=== PATIENT | male | born 1970 | race Caucasian/White ===

== ENCOUNTER 2018-09-22 20:02 | Emergency (ER) | payer MEDICARE, MEDICAID, SELFPAY ==
[2018-09-22 20:04] VITALS: BP 152/70; PULSE 100; RESP 20; TEMP 37.6; O2SAT 90
--- NOTE | 2018-09-22 20:18 | W.ED.GENAD ---
Discharge Plan Disposition Patient Disposition: HOME Condition: Stable Discharge Details Chief Complaint: RespSymp Clinical Impression: Upper respiratory infection Primary Care Provider: Jose Alfredo Galindo ED Provider: Severiano Martel [place] Meds and New Rx's Prescriptions: New levofloxacin 750 mg tablet 750 mg PO DAILY Qty: 6 RF: 0 prednisone 20 mg tablet 60 mg PO DAILY 4 Days Qty: 12 RF: 0 Continued Fiasp U-100 Insulin 100 unit/mL solution 40 unit SC DAILY RF: 0 promethazine-codeine 6.25-10 mg/5 mL syrup 5 ml PO Q6H PRN (Reason: cough) Qty: 118 RF: 0 carvedilol 25 MG tablet 25 mg PO TID Qty: 180 RF: 4 aspirin [Ecotrin Low Strength] 81 MG tablet,delayed release (DR/EC) 81 mg PO DAILY RF: 0 Insulin Pump [id number] 1 EACH misc 1 ea Miscellaneous DIRECTED RF: 0 minoxidil 10 MG tablet 10 mg PO BID RF: 0 ondansetron HCl [Zofran] 4 MG tablet 4 mg PO Q12H PRN Qty: 8 RF: 1 latanoprost [Xalatan] 2.5 ML drops 1 drp OU HS RF: 0 Glucagon Emergency Kit (human) 1 MG kit 1 mg IM/SC HYPOGLYCEMIA PRN Qty: 2 RF: 3 pantoprazole 40 MG tablet,delayed release (DR/EC) 40 mg PO QAM Qty: 90 RF: 4 Blood Glucose Test 1 EACH strip 1 ea Miscellaneous QID Qty: 360 RF: 4 Lantus U-100 Insulin 100 UNIT/1 ML solution 20 u Sub-Q DAILY Qty: 5 RF: 5 alcohol swabs [Alcohol Pads] 1 EACH pads, medicated 1 ea Topical 6 x/day Qty: 250 RF: 5 pen needle, diabetic 1 EACH needle 1 ea Miscellaneous 6 x /day Qty: 180 RF: 11 Novolog Flexpen U-100 Insulin 100 UNIT/1 ML insulin pen 3 - 12 u SQ 5x/day Qty: 5 RF: 5 PROVENTIL HFA 18 GM HFA.AER.AD 1 - 2 puff Inhalation Q4H PRN Qty: 1 RF: 5 cinacalcet [Sensipar] 30 MG tablet 30 mg PO QPM RF: 0 metoclopramide HCl [Reglan] 10 MG tablet 10 mg PO Q8H PRN (Reason: Nausea / Vomiting) Qty: 10 RF: 0 albuterol sulfate 2.5 MG/3 ML solution for nebulization 2.5 mg Inhalation Q4H PRN (Reason: Shortness Of Breath) Qty: 10 RF: 0 Aeroneb Go Nebulizer 1 EACH misc 1 ea Miscellaneous DIRECTED Qty: 1 RF: 0 amlodipine 5 MG tablet 5 mg PO DAILY RF: 0 Discontinued cefuroxime axetil 250 mg tablet 250 mg PO Q12H Qty: 14 RF: 0 Discharge Instructions Additional Instructions: Use the inhaler every 2 hours as needed take the prednisone and levofloxacin once daily starting tomorrow. if you feel you are becoming significantly more ill or having worsening trouble breathing return to the emergency department Medical Decision Making 48 yo male with hx of esrd on dialysis MWF and received his session earlier today, T1DM, who comes in with cough for 3 days and today had fevers at home. He saw his pcp earlier today who put him on cefuroxime, and he has had one dose but despite this he has felt more and more dyspneic and had fevers at home tonight so came here. Denies recent travel, rashes, vomit. He has wheezing bilaterally at the apices and diminished breath sounds at the bases bilaterally on exam and intermittent dry cough. I suspect pna, will obtain labs, cultures and xray and also obtain influenza swab. Given the wheezing will tx with steroids and neb and monitor labs reassuring, he feels much better after neb, awaiting imaging imaging shows no acute findings, his cough is significantly improved after duoneb and no longer has wheezing. Given reassuring labs I feel he can be managed as an outpatient and he is comfortable with this and returning if he worsens. I am going to switch him to levofloxacin to cover more broadly. Full return precautions given Differential Diagnosis pna, influenza, rad Imaging Data Radiologic Study: Attestation: I personally reviewed and interpreted this imaging study as follows: Imaging: X-Ray Radiologist's impression: no acute findings Lab Data Lab results reviewed: Yes I reviewed the patient's lab results. HPI General Mode of arrival: ambulatory. Date/Time Provider Initiated Documentation: 09/22/18 20:09. Limitations to Documentation: no limitations. Information obtained by: patient. History of Present Illness 48 year old M presents to the emergency department with the chief complaint of fever, described as moderate, Quality is described as burning, Patient reports no radiation. Patient started experiencing this day(s) (1) and it has been constant. No relieving factors improve symptom(s), No exacerbating factors reported . Patient notes cough. Patient did receive the following treatments prior to arrival, none Related Data Home Medications Medication Instructions Recorded Confirmed aspirin [Ecotrin Low Strength] 81 mg PO DAILY tab-cap 10/12/12 09/22/18 carvedilol 25 mg PO TID #180 tab-cap 10/12/12 09/22/18 Insulin Pump [id number] ea 02/15/13 09/22/18 cinacalcet [Sensipar] 30 mg PO QPM 04/01/14 09/22/18 minoxidil 10 mg PO BID tab-cap 06/27/14 09/22/18 ondansetron HCl [Zofran] 4 mg PO Q12H PRN #8 tab-cap 08/22/14 09/22/18 Glucagon Emergency Kit (human) 1 mg IM/SC HYPOGLYCEMIA PRN #2 kit 09/11/15 09/22/18 latanoprost [Xalatan] 1 drp OU HS drp 09/11/15 09/22/18 pantoprazole 40 mg PO QAM #90 tab-cap 09/11/15 09/22/18 amlodipine 5 mg PO DAILY 06/16/16 09/22/18 Blood Glucose Test #360 strip 03/10/17 09/22/18 Lantus U-100 Insulin 20 u SUB-Q DAILY #5 pen 06/09/17 09/22/18 alcohol swabs [Alcohol Pads] 1 ea TOPICAL 6 x/day #250 pad 06/09/17 09/22/18 pen needle, diabetic #180 ndl 06/09/17 09/22/18 Novolog Flexpen U-100 Insulin 3 - 12 u SQ 5x/day #5 pen 06/12/17 09/22/18 Aeroneb Go Nebulizer #1 ea 11/14/17 09/22/18 albuterol sulfate 2.5 mg INHALATION Q4H PRN #10 vial 11/14/17 09/22/18 metoclopramide HCl [Reglan] 10 mg PO Q8H PRN #10 tab 11/14/17 09/22/18 insulin aspart (niacinamide) (U- 40 unit SC DAILY ml 08/03/18 09/22/18 100) 100 unit/mL subcutaneous solution levofloxacin 750 mg PO DAILY #6 tab 09/22/18 prednisone 60 mg PO DAILY 4 Days #12 tab 09/22/18 promethazine 6.25 mg-codeine 10 5 ml PO Q6H PRN #118 ml 09/22/18 09/22/18 mg/5 mL syrup Previous Rx's Medication Instructions Recorded Blood Glucose Test #360 strip 03/10/17 Lantus U-100 Insulin 20 u SUB-Q DAILY #5 pen 06/09/17 alcohol swabs [Alcohol Pads] 1 ea TOPICAL 6 x/day #250 pad 06/09/17 pen needle, diabetic #180 ndl 06/09/17 Novolog Flexpen U-100 Insulin 3 - 12 u SQ 5x/day #5 pen 06/12/17 Aeroneb Go Nebulizer #1 ea 11/14/17 albuterol sulfate 2.5 mg INHALATION Q4H PRN #10 vial 11/14/17 metoclopramide HCl [Reglan] 10 mg PO Q8H PRN #10 tab 11/14/17 levofloxacin 750 mg PO DAILY #6 tab 09/22/18 prednisone 60 mg PO DAILY 4 Days #12 tab 09/22/18 promethazine 6.25 mg-codeine 10 5 ml PO Q6H PRN #118 ml 09/22/18 mg/5 mL syrup Allergies Allergy/AdvReac Type Severity Reaction Status Date / Time Penicillins Allergy Severe HIVES Unverified 09/22/18 20:09 vancomycin Allergy Unknown sweats, Unverified 09/22/18 20:09 chills rash simvastatin AdvReac Intermediate MYOPATHY Unverified 09/22/18 20:09 morphine AdvReac Nausea Unverified 09/22/18 20:09 MOLD AND SMUT Allergy Severe ANAPHALAXSI Uncoded 09/22/18 20:09 S General Stated Complaint: RespSymp ARPITA: 3 Review of Systems Review of Systems All systems reviewed & are unremarkable except as noted in HPI and below ENT Denies change in voice Gastrointestinal Denies abdominal pain, Denies nausea and Denies vomiting Integumentary/Breasts Denies rash [facility] Medical History Chronic renal failure syndrome Diabetes mellitus type 1 Essential hypertension Gastroparesis Hyperlipidemia Surgical History Cholecystectomy (~2000) Fracture, Open Treatment Family History Mother No problems noted. Father No problems noted. Sister No problems noted. Grandfather No problems noted. Grandfather No problems noted. Grandmother No problems noted. Grandmother No problems noted. Social History Smoking/Tobacco Use Status: Never Alcohol Intake: never Drug use: Never Do you feel safe in your relationship?: Yes Exam Const General: no acute distress Orientation: alert HENMT Head: normal to inspection Ears: external ears normal General nose exam: external nose normal Mouth: moist mucous membranes Eyes General: appearance normal, both eyes and all related structures Neck Neck: normal visual inspection Resp Auscultation: wheezes Cardio Rate: regular rate Skin General skin exam: no rashes or lesions noted Neuro General: alert and oriented x3 Extrem General: normal to inspection Psych Mental Status: mental status grossly normal Course Vital Signs Temperature 37.6 C H 09/22/18 20:04 Pulse 100 H 09/22/18 20:04 Respiratory Rate 20 09/22/18 20:04 Blood Pressure 152/70 H 09/22/18 20:04 Pulse Oximetry 90 L 09/22/18 20:04 Temperature 37.6 C H 09/22/18 20:04 Temperature Source Skin 09/22/18 20:04 Pulse 100 H 09/22/18 20:04 Respiratory Rate 20 09/22/18 20:04 Blood Pressure 152/70 H 09/22/18 20:04 Blood Pressure Position Sitting 09/22/18 20:04 Pulse Oximetry 90 L 09/22/18 20:04 Oxygen Delivery Method Room Air 09/22/18 20:04 Oxygen Flow Rate 0 09/22/18 20:04 Lab/Test Results Lab/Test Results: 09/22/18 20:12 Blood Blood Culture - Pending 09/22/18 20:12 Blood Blood Culture - Pending
--- NOTE | 2018-09-22 20:21 | ED.GENADUL_ITS ---
Discharge Plan Disposition Patient Disposition: HOME Condition: Stable Discharge Details Chief Complaint: RespSymp Clinical Impression: Upper respiratory infection Primary Care Provider: Jose Alfredo Galindo ED Provider: Severiano Martel [place] Meds and New Rx's Prescriptions: New levofloxacin 750 mg tablet 750 mg PO DAILY Qty: 6 RF: 0 prednisone 20 mg tablet 60 mg PO DAILY 4 Days Qty: 12 RF: 0 Continued Fiasp U-100 Insulin 100 unit/mL solution 40 unit SC DAILY RF: 0 promethazine-codeine 6.25-10 mg/5 mL syrup 5 ml PO Q6H PRN (Reason: cough) Qty: 118 RF: 0 carvedilol 25 MG tablet 25 mg PO TID Qty: 180 RF: 4 aspirin [Ecotrin Low Strength] 81 MG tablet,delayed release (DR/EC) 81 mg PO DAILY RF: 0 Insulin Pump [id number] 1 EACH misc 1 ea Miscellaneous DIRECTED RF: 0 minoxidil 10 MG tablet 10 mg PO BID RF: 0 ondansetron HCl [Zofran] 4 MG tablet 4 mg PO Q12H PRN Qty: 8 RF: 1 latanoprost [Xalatan] 2.5 ML drops 1 drp OU HS RF: 0 Glucagon Emergency Kit (human) 1 MG kit 1 mg IM/SC HYPOGLYCEMIA PRN Qty: 2 RF: 3 pantoprazole 40 MG tablet,delayed release (DR/EC) 40 mg PO QAM Qty: 90 RF: 4 Blood Glucose Test 1 EACH strip 1 ea Miscellaneous QID Qty: 360 RF: 4 Lantus U-100 Insulin 100 UNIT/1 ML solution 20 u Sub-Q DAILY Qty: 5 RF: 5 alcohol swabs [Alcohol Pads] 1 EACH pads, medicated 1 ea Topical 6 x/day Qty: 250 RF: 5 pen needle, diabetic 1 EACH needle 1 ea Miscellaneous 6 x /day Qty: 180 RF: 11 Novolog Flexpen U-100 Insulin 100 UNIT/1 ML insulin pen 3 - 12 u SQ 5x/day Qty: 5 RF: 5 PROVENTIL HFA 18 GM HFA.AER.AD 1 - 2 puff Inhalation Q4H PRN Qty: 1 RF: 5 cinacalcet [Sensipar] 30 MG tablet 30 mg PO QPM RF: 0 metoclopramide HCl [Reglan] 10 MG tablet 10 mg PO Q8H PRN (Reason: Nausea / Vomiting) Qty: 10 RF: 0 albuterol sulfate 2.5 MG/3 ML solution for nebulization 2.5 mg Inhalation Q4H PRN (Reason: Shortness Of Breath) Qty: 10 RF: 0 Aeroneb Go Nebulizer 1 EACH misc 1 ea Miscellaneous DIRECTED Qty: 1 RF: 0 amlodipine 5 MG tablet 5 mg PO DAILY RF: 0 Discontinued cefuroxime axetil 250 mg tablet 250 mg PO Q12H Qty: 14 RF: 0 Discharge Instructions Additional Instructions: Use the inhaler every 2 hours as needed take the prednisone and levofloxacin once daily starting tomorrow. if you feel you are becoming significantly more ill or having worsening trouble breathing return to the emergency department Medical Decision Making 48 yo male with hx of esrd on dialysis MWF and received his session earlier today, T1DM, who comes in with cough for 3 days and today had fevers at home. He saw his pcp earlier today who put him on cefuroxime, and he has had one dose but despite this he has felt more and more dyspneic and had fevers at home tonight so came here. Denies recent travel, rashes, vomit. He has wheezing bilaterally at the apices and diminished breath sounds at the bases bilaterally on exam and intermittent dry cough. I suspect pna, will obtain labs, cultures and xray and also obtain influenza swab. Given the wheezing will tx with steroids and neb and monitor labs reassuring, he feels much better after neb, awaiting imaging imaging shows no acute findings, his cough is significantly improved after duoneb and no longer has wheezing. Given reassuring labs I feel he can be managed as an outpatient and he is comfortable with this and returning if he worsens. I am going to switch him to levofloxacin to cover more broadly. Full return precautions given Differential Diagnosis pna, influenza, rad Imaging Data Radiologic Study: Attestation: I personally reviewed and interpreted this imaging study as follows: Imaging: X-Ray Radiologist's impression: no acute findings Lab Data Lab results reviewed: Yes I reviewed the patient's lab results. HPI General Mode of arrival: ambulatory . Date/Time Provider Initiated Documentation: 09/22/18 20:09 . Limitations to Documentation: no limitations . Information obtained by: patient . History of Present Illness 48 year old M presents to the emergency department with the chief complaint of fever, described as moderate, Quality is described as burning, Patient reports no radiation. Patient started experiencing this day(s) (1) and it has been constant. No relieving factors improve symptom(s), No exacerbating factors reported . Patient notes cough. Patient did receive the following treatments prior to arrival, none Related Data Home Medications Medication Instructions Recorded Confirmed aspirin [Ecotrin Low Strength] 81 mg PO DAILY tab-cap 10/12/12 09/22/18 carvedilol 25 mg PO TID #180 tab-cap 10/12/12 09/22/18 Insulin Pump [id number] ea 02/15/13 09/22/18 cinacalcet [Sensipar] 30 mg PO QPM 04/01/14 09/22/18 minoxidil 10 mg PO BID tab-cap 06/27/14 09/22/18 ondansetron HCl [Zofran] 4 mg PO Q12H PRN #8 tab-cap 08/22/14 09/22/18 Glucagon Emergency Kit (human) 1 mg IM/SC HYPOGLYCEMIA PRN #2 kit 09/11/15 09/22/18 latanoprost [Xalatan] 1 drp OU HS drp 09/11/15 09/22/18 pantoprazole 40 mg PO QAM #90 tab-cap 09/11/15 09/22/18 amlodipine 5 mg PO DAILY 06/16/16 09/22/18 Blood Glucose Test #360 strip 03/10/17 09/22/18 Lantus U-100 Insulin 20 u SUB-Q DAILY #5 pen 06/09/17 09/22/18 alcohol swabs [Alcohol Pads] 1 ea TOPICAL 6 x/day #250 pad 06/09/17 09/22/18 pen needle, diabetic #180 ndl 06/09/17 09/22/18 Novolog Flexpen U-100 Insulin 3 - 12 u SQ 5x/day #5 pen 06/12/17 09/22/18 Aeroneb Go Nebulizer #1 ea 11/14/17 09/22/18 albuterol sulfate 2.5 mg INHALATION Q4H PRN #10 vial 11/14/17 09/22/18 metoclopramide HCl [Reglan] 10 mg PO Q8H PRN #10 tab 11/14/17 09/22/18 insulin aspart (niacinamide) (U- 40 unit SC DAILY ml 08/03/18 09/22/18 100) 100 unit/mL subcutaneous solution levofloxacin 750 mg PO DAILY #6 tab 09/22/18 prednisone 60 mg PO DAILY 4 Days #12 tab 09/22/18 promethazine 6.25 mg-codeine 10 5 ml PO Q6H PRN #118 ml 09/22/18 09/22/18 mg/5 mL syrup Previous Rx's Medication Instructions Recorded Blood Glucose Test #360 strip 03/10/17 Lantus U-100 Insulin 20 u SUB-Q DAILY #5 pen 06/09/17 alcohol swabs [Alcohol Pads] 1 ea TOPICAL 6 x/day #250 pad 06/09/17 pen needle, diabetic #180 ndl 06/09/17 Novolog Flexpen U-100 Insulin 3 - 12 u SQ 5x/day #5 pen 06/12/17 Aeroneb Go Nebulizer #1 ea 11/14/17 albuterol sulfate 2.5 mg INHALATION Q4H PRN #10 vial 11/14/17 metoclopramide HCl [Reglan] 10 mg PO Q8H PRN #10 tab 11/14/17 levofloxacin 750 mg PO DAILY #6 tab 09/22/18 prednisone 60 mg PO DAILY 4 Days #12 tab 09/22/18 promethazine 6.25 mg-codeine 10 5 ml PO Q6H PRN #118 ml 09/22/18 mg/5 mL syrup Allergies Allergy/AdvReac Type Severity Reaction Status Date / Time Penicillins Allergy Severe HIVES Unverified 09/22/18 20:09 vancomycin Allergy Unknown sweats, Unverified 09/22/18 20:09 chills rash simvastatin AdvReac Intermediate MYOPATHY Unverified 09/22/18 20:09 morphine AdvReac Nausea Unverified 09/22/18 20:09 MOLD AND SMUT Allergy Severe ANAPHALAXSI Uncoded 09/22/18 20:09 S General Stated Complaint: RespSymp ARPTIA: 3 Review of Systems Review of Systems All systems reviewed & are unremarkable except as noted in HPI and below ENT Denies change in voice Gastrointestinal Denies abdominal pain, Denies nausea and Denies vomiting Integumentary/Breasts Denies rash [facility] Medical History Chronic renal failure syndrome Diabetes mellitus type 1 Essential hypertension Gastroparesis Hyperlipidemia Surgical History Cholecystectomy (~2000) Fracture, Open Treatment Family History Mother No problems noted. Father No problems noted. Sister No problems noted. Grandfather No problems noted. Grandfather No problems noted. Grandmother No problems noted. Grandmother No problems noted. Social History Smoking/Tobacco Use Status: Never Alcohol Intake: never Drug use: Never Do you feel safe in your relationship?: Yes Exam Const General: no acute distress Orientation: alert HENMT Head: normal to inspection Ears: external ears normal General nose exam: external nose normal Mouth: moist mucous membranes Eyes General: appearance normal, both eyes and all related structures Neck Neck: normal visual inspection Resp Auscultation: wheezes Cardio Rate: regular rate Skin General skin exam: no rashes or lesions noted Neuro General: alert and oriented x3 Extrem General: normal to inspection Psych Mental Status: mental status grossly normal Course Vital Signs Temperature 37.6 C H 09/22/18 20:04 Pulse 100 H 09/22/18 20:04 Respiratory Rate 20 09/22/18 20:04 Blood Pressure 152/70 H 09/22/18 20:04 Pulse Oximetry 90 L 09/22/18 20:04 Temperature 37.6 C H 09/22/18 20:04 Temperature Source Skin 09/22/18 20:04 Pulse 100 H 09/22/18 20:04 Respiratory Rate 20 09/22/18 20:04 Blood Pressure 152/70 H 09/22/18 20:04 Blood Pressure Position Sitting 09/22/18 20:04 Pulse Oximetry 90 L 09/22/18 20:04 Oxygen Delivery Method Room Air 09/22/18 20:04 Oxygen Flow Rate 0 09/22/18 20:04 Lab/Test Results Lab/Test Results: 09/22/18 20:12 Blood Blood Culture - Pending 09/22/18 20:12 Blood Blood Culture - Pending
[2018-09-22] MEDS: methylPREDNISolone SUCC 125 MG VIAL IVP (20:35)
[2018-09-22] MEDS: Normal Saline Flush 10 ML SYR IVP (20:36)
[2018-09-22] MEDS: Albuterol/Ipratropium 3 ML UPD VIAL UPD (20:36)
[2018-09-22 20:38] LABS: Abs Immature Grans 0.02 k/cumm (0.0-0.09); Absolute Basophil Count 0.04 k/cumm (0.0-0.2); Absolute Eosinophil Count 0.46 k/cumm (0.0-0.7); Absolute Lymphocyte Count 0.78 k/cumm (1.2-3.4); Absolute Monocyte Count 0.59 k/cumm (0.11-0.7); Absolute Neutrophil Count 5.16 k/cumm (1.2-6.7); Basophils % 0.6; Eosinophils % 6.5; HGB 10.7 g/dL (13.5-17.5); Immature Grans % 0.3; Lactate-non-spesis 0.4 mmol/l (0.6-1.4); Lymphocytes % 11.1; Mean Corp. HGB Concentration 32.4 g/dL (32.0-36.0); Mean Corpuscular Hemoglobin 31.4 pg (27.0-33.0); Mean Corpuscular Volume 96.8 fL (80-95); Mean Platelet Volume 9.2 fL (8.0-11.0); Monocytes % 8.4; Neutrophils % 73.1; Platelet Count 146 x1000/uL (130-400); RBC 3.41 m/cumm (4.50-6.00); RBC Distribution Width 13.4 % (11.8-14.1); White Blood Cell Count 7.05 k/cumm (4.4-10.8)
[2018-09-22 20:55] LABS: PTT Activated 26.5 sec (21.0-31.4); Prothrombin Time 10.1 sec (9.3-11.0)
[2018-09-22 20:56] LABS: ALT 34 U/L (12-78); AST 50 U/L (15-37); Albumin 3.8 g/dL (3.4-5.0); Alkaline Phosphatase 105 U/L (46-116); Anion Gap 10.3 mmol/L (3-11); BUN 14 mg/dL (7-18); Bilirubin, Total 0.6 mg/dL (0.2-1.0); CO2 30.7 mmol/L (21.0-32.0); Calcium 8.7 mg/dL (8.5-10.1); Chloride 98 mmol/L (98-107); Estimated GFR 17.17 (mL/min/1.73m2); Glucose 86 mg/dL (70-100); Magnesium 1.9 mg/dL (1.8-2.4); Potassium 3.1 mmol/L (3.5-5.1); Sodium 139 mmol/L (136-145); Total Protein 7.4 g/dL (6.4-8.2)
--- NOTE | 2018-09-22 20:56 | DI.RAD_ITS ---
SYMPTOM/DIAGNOSIS: COUGH PA AND LATERAL CHEST: The lungs are free of infiltrate. There is no pleural effusion. The cardiovascular structures are intact. A right central venous catheter is unchanged when compared with the previous examination. SUMMARY: No evidence of acute cardiopulmonary disease.
[2018-09-22 21:05] VITALS: BP 148/54; PULSE 95; RESP 20; TEMP 37.6; O2SAT 97
[2018-09-22 21:18] LABS: CREATININE 3.77 mg/dL (0.70-1.30)
--- NOTE | 2018-09-22 21:24 | DI.VRAD_ITS ---
EXAM: XR Chest, 2 Views EXAM DATE/TIME: 09/22/2018 8:18 PM CLINICAL HISTORY: 48 years old, male; Signs and symptoms; Cough TECHNIQUE: Imaging protocol: XR of the chest, 2 views. COMPARISON: CR CHEST 2 VIEWS PA,LAT 11/14/2017 5:06 AM FINDINGS: Tubes, catheters and devices: Right central venous catheter unchanged. Lungs: Unremarkable. No consolidation. Pleural space: Unremarkable. No pleural effusion. No pneumothorax. Heart/Mediastinum: Unremarkable. No cardiomegaly. Bones/joints: Unremarkable. IMPRESSION: No acute finding. Dictated and Authenticated by: Severiano Evans MD. Ordering:WILL العلي MD
[2018-09-22] MEDS: levoFLOXacin 500 MG, levoFLOXacin 250 MG 750 MG PO (21:34)
[2018-09-22] MEDS: Albuterol HFA 8 GM 60 PUFF INH IH (21:35)
[2018-09-22 21:39] VITALS: BP 151/66; PULSE 99; RESP 22; TEMP 38; O2SAT 91
== END 2018-09-22 21:58 | disposition home or self-care (01) ==
PROVIDERS: Emergency Provider Emergency Medicine; PCP Family Medicine
DX: J06.9 Acute upper respiratory infection, unspecified (principal); I12.0 Hypertensive chronic kidney disease with stage 5 chronic kidney disease or end stage renal disease; E10.22 Type 1 diabetes mellitus with diabetic chronic kidney disease; N18.6 End stage renal disease; Z99.2 Dependence on renal dialysis
CPT/HCPCS: 36415; 80053; 87040; 87449; 94640; 99284; 71046; 83605; 83735; 85025; 85610; 85730; J2930; J7620

== ENCOUNTER 2018-11-04 14:27 | Outpatient (CLI) | payer MEDICARE, MEDICAID, SELFPAY ==
[2018-11-08 12:10] LABS: Lyme Ab w Rflx to Lyme Confirm Negative
== END 2018-11-04 14:47 ==
PROVIDERS: PCP Family Medicine; Visit Provider Family Medicine
DX: M25.50 Pain in unspecified joint (principal)
CPT/HCPCS: 36415; 86618

== ENCOUNTER 2018-12-14 12:35 | Outpatient (CLI) | payer MEDICARE, MEDICAID, SELFPAY ==
[2018-12-14 14:35] LABS: C-Reactive Protein < 0.05 mg/dL (0.0-0.3)
[2018-12-14 14:55] LABS: ESR 14 MM/HR (0-15)
== END 2018-12-14 12:55 ==
PROVIDERS: PCP Family Medicine; Visit Provider Family Medicine
DX: M25.50 Pain in unspecified joint (principal)
CPT/HCPCS: 36415; 85652; 86140

== ENCOUNTER 2019-06-22 16:01 | Emergency (ER) | payer MEDICARE, MEDICAID, SELFPAY ==
[2019-06-22 16:04] VITALS: BP 120/59; PULSE 80; RESP 20; TEMP 36.7; O2SAT 94
--- NOTE | 2019-06-22 16:28 | ED.GENADUL_ITS ---
Discharge Plan Disposition Patient Disposition: HOME Condition: Improving Discharge Details Chief Complaint: RespSymp Clinical Impression: Acute bronchitis Primary Care Provider: Jose Alfredo Galindo. ED Provider: Mavis Otero Home Meds and New Rx's Prescriptions: New prednisone 20 mg tablet See Rx Instructions .ROUTE .COMPLEX Qty: 12 RF: 0 benzonatate [Tessalon Perles] 100 mg capsule 100 mg PO TID PRN (Reason: cough) Qty: 10 RF: 0 Continued Fiasp U-100 Insulin 100 unit/mL solution 40 unit SC DAILY RF: 0 carvedilol 25 MG tablet 25 mg PO TID Qty: 180 RF: 4 aspirin [Ecotrin Low Strength] 81 MG tablet,delayed release (DR/EC) 81 mg PO DAILY RF: 0 (DME) Insulin Pump [id number] 1 EACH misc 1 ea Miscellaneous DIRECTED RF: 0 minoxidil 10 MG tablet 10 mg PO BID RF: 0 ondansetron HCl [Zofran] 4 MG tablet 4 mg PO Q12H PRN Qty: 8 RF: 1 latanoprost [Xalatan] 2.5 ML drops 1 drp OU HS RF: 0 Glucagon Emergency Kit (human) 1 MG kit 1 mg IM/SC HYPOGLYCEMIA PRN Qty: 2 RF: 3 pantoprazole 40 MG tablet,delayed release (DR/EC) 40 mg PO QAM PRNQty: 90 RF: 4 (DME) Blood Glucose Test 1 EACH strip 1 ea Miscellaneous QID Qty: 360 RF: 4 alcohol swabs [Alcohol Pads] 1 EACH pads, medicated 1 ea Topical 6 x/day Qty: 250 RF: 5 (DME) pen needle, diabetic 1 EACH needle 1 ea Miscellaneous 6 x /day Qty: 180 RF: 11 Novolog Flexpen U-100 Insulin 100 UNIT/1 ML insulin pen 3 - 12 u SQ 5x/day Qty: 5 RF: 5 PROVENTIL HFA 18 GM HFA.AER.AD 1 - 2 puff Inhalation Q4H PRN Qty: 1 RF: 5 Lantus U-100 Insulin 100 unit/mL solution 20 unit Sub-Q DAILY Qty: 5 RF: 11 cinacalcet [Sensipar] 30 MG tablet 30 mg PO QPM RF: 0 metoclopramide HCl [Reglan] 10 MG tablet 10 mg PO Q8H PRN (Reason: Nausea / Vomiting) Qty: 10 RF: 0 albuterol sulfate 2.5 MG/3 ML solution for nebulization 2.5 mg Inhalation Q4H PRN (Reason: Shortness Of Breath) Qty: 10 RF: 0 (DME) Aeroneb Go Nebulizer 1 EACH misc 1 ea Miscellaneous DIRECTED Qty: 1 RF: 0 amlodipine 5 MG tablet 5 mg PO DAILY RF: 0 Discharge Instructions Instructions: Acute Bronchitis (ED) Additional Instructions: Use the albuterol inhaler as needed and directed for shortness of breath or wheezing. Use the Tessalon Perles as needed and directed for coughing. Take the steroids until finished. Follow-up with your scheduled appointment with your primary care doctor tomorrow. Return to the emergency department if you develop any worsening or new concerning symptoms. Discharge Data Discharge Date/Time-TO BE ENTERED AT DEPARTURE: 06/22/19 18:15 Discharge Physician: Mavis Otero Medical Decision Making 1615 -- 49-year-old male with a history of diabetes, end-stage renal disease on dialysis, GERD, hypertension, hyperlipidemia presents with cough mainly dry occasionally productive of white sputum and occasional shortness of breath for the past few days. He has been taking xope-hof-hknztsa cough and cold medication without relief. Denies fever or chest pain. O2 sat 94% on room air. Afebrile. Patient appears nontoxic. He is speaking in full sentences. Scattered rhonchi and wheezing throughout. Suspect most likely bronchitis. Chest x-ray obtained which notes prominent indistinct pulmonary vascular most likely consistent with edema versus atypical infection but without focal consolidation. [id number] --patient reassessed -patient feels better. He feels the neb treatment help with his cough. He is requesting another treatment to help her for home. Breath sounds significantly improved. Will give another neb treatment. We will send with an albuterol inhaler, prednisone and Tessalon Perles. Do not see indication for antibiotics at this time. Patient has a follow-up appointment with his primary care doctor tomorrow. He is advised to return here with any worsening symptoms. Medical Records Medical records reviewed: Yes I reviewed the patient's medical records. Imaging Data Radiologic Study: Radiologist's impression: XR Chest, 2 Views Exam date and time: 06/22/2019 5:21 PM Age: 49 years old Clinical indication: Other: Cough, SOB, R/O acute disease TECHNIQUE: Imaging protocol: XR of the chest Views: 2 views. COMPARISON: CR XR CHEST 2V PA LATERAL 09/22/2018 8:55 PM FINDINGS: Tubes, catheters and devices: Right tunnel catheter terminates in the right atrium. Lungs: Prominent indistinct pulmonary vasculature. No focal consolidation. Pleural space: Unremarkable. No pleural effusion. No pneumothorax. Heart/Mediastinum: Stable enlarged cardiomediastinal silhouette. Bones/joints: Unremarkable. IMPRESSION: Prominent indistinct pulmonary vasculature consistent with edema or atypical infection. No focal consolidation. HPI General Mode of arrival: ambulatory . Date/Time Provider Initiated Documentation: 06/22/19 16:11 . Limitations to Documentation: no limitations . Information obtained by: patient . History of Present Illness 49 year old M pr esents to the emergency department with the chief complaint of cough, occasional shortness of breath , described as mild and moderate, Patient started experiencing this day(s) (3) and it has been constant. No relieving factors improve symptom(s), No exacerbating factors reported . Patient notes cough (dry, occasional white), loss of appetite (slight) and shortness of breath (occasional); denies chest pain, fever/chills, headaches, malaise, nausea/vomiting, rash, seizure, syncope and weakness. Patient did receive the following treatments prior to arrival, none and other Related Data Home Medications Medication Instructions Recorded Confirmed aspirin [Ecotrin Low Strength] 81 mg PO DAILY tab-cap 10/12/12 06/23/19 carvedilol 25 mg PO TID #180 tab-cap 10/12/12 06/23/19 Insulin Pump [id number] ea 02/15/13 06/23/19 cinacalcet [Sensipar] 30 mg PO QPM 04/01/14 06/23/19 minoxidil 10 mg PO BID tab-cap 06/27/14 06/23/19 ondansetron HCl [Zofran] 4 mg PO Q12H PRN #8 tab-cap 08/22/14 06/23/19 Glucagon Emergency Kit (human) 1 mg IM/SC HYPOGLYCEMIA PRN #2 kit 09/11/15 06/23/19 latanoprost [Xalatan] 1 drp OU HS drp 09/11/15 06/23/19 pantoprazole 40 mg PO QAM PRN #90 tab-cap 09/11/15 06/23/19 amlodipine 5 mg PO DAILY 06/16/16 06/23/19 Blood Glucose Test #360 strip 03/10/17 06/23/19 alcohol swabs [Alcohol Pads] 1 ea TOPICAL 6 x/day #250 pad 06/09/17 06/23/19 pen needle, diabetic #180 ndl 06/09/17 06/23/19 Novolog Flexpen U-100 Insulin 3 - 12 u SQ 5x/day #5 pen 06/12/17 06/23/19 Aeroneb Go Nebulizer #1 ea 11/14/17 06/23/19 albuterol sulfate 2.5 mg INHALATION Q4H PRN #10 vial 11/14/17 06/23/19 metoclopramide HCl [Reglan] 10 mg PO Q8H PRN #10 tab 11/14/17 06/23/19 insulin aspart (niacinamide) 100 40 unit SC DAILY ml 08/03/18 06/23/19 unit/mL subcutaneous solution insulin glargine 100 unit/mL 20 unit SUB-Q DAILY #5 ml 03/01/19 06/23/19 subcutaneous solution benzonatate [Tessalon Perles] 100 mg PO TID PRN #10 cap 06/22/19 06/23/19 prednisone See Rx Instructions .ROUTE 06/22/19 06/23/19 .COMPLEX #12 tab Previous Rx's Medication Instructions Recorded Blood Glucose Test #360 strip 03/10/17 alcohol swabs [Alcohol Pads] 1 ea TOPICAL 6 x/day #250 pad 06/09/17 pen needle, diabetic #180 ndl 06/09/17 Novolog Flexpen U-100 Insulin 3 - 12 u SQ 5x/day #5 pen 06/12/17 Aeroneb Go Nebulizer #1 ea 11/14/17 albuterol sulfate 2.5 mg INHALATION Q4H PRN #10 vial 11/14/17 metoclopramide HCl [Reglan] 10 mg PO Q8H PRN #10 tab 11/14/17 insulin glargine 100 unit/mL 20 unit SUB-Q DAILY #5 ml 03/01/19 subcutaneous solution benzonatate [Tessalon Perles] 100 mg PO TID PRN #10 cap 06/22/19 prednisone See Rx Instructions .ROUTE 06/22/19 .COMPLEX #12 tab Allergies Allergy/AdvReac Type Severity Reaction Status Date / Time Penicillins Allergy Severe HIVES Unverified 06/23/19 12:55 vancomycin Allergy Unknown sweats, Unverified 06/23/19 12:55 chills rash cigarette smoke Allergy Unverified 06/23/19 12:55 simvastatin AdvReac Intermediate MYOPATHY Unverified 06/23/19 12:55 morphine AdvReac Nausea Unverified 06/23/19 12:55 MOLD AND SMUT Allergy Severe ANAPHALAXSI Uncoded 06/23/19 12:55 S General Stated Complaint: RespSymp ARPITA: 3 Review of Systems All systems reviewed & are unremarkable except as noted in HPI and below Constitutional Constitutional: Reports as per HPI, Denies chills and Denies fever(s) Eyes Eyes: Denies blurry vision ENT Ears, Nose, Mouth, and Throat: Denies dizziness, Denies sore throat and Denies throat swelling Cardiovascular Cardiovascular: Denies chest pain and Reports dyspnea Respiratory Respiratory: Reports cough and Reports dyspnea Gastrointestinal Gastrointestinal: Denies abdominal pain, Denies diarrhea and Denies vomiting Genitourinary Genitourinary: Denies hematuria and Denies dysuria Musculoskeletal Musculoskeletal: Denies back pain and Denies numbness Integumentary/Breasts Skin/Breast: Denies lesions and Denies rash Neurologic Neurologic: Denies dizziness, Denies focal weakness and Denies numbness Allergic/Immunologic Allergic/Immunologic: Denies throat swelling [facility] Medical History Chronic renal failure syndrome Diabetes mellitus type 1 Essential hypertension Gastroparesis Hyperlipidemia Surgical History Cholecystectomy (~2000) Fracture, Open Treatment RIGHT ANKLE 07/18/14 Family History Mother No problems noted. Father No problems noted. Sister No problems noted. Grandfather No problems noted. Grandfather No problems noted. Grandmother No problems noted. Grandmother No problems noted. Social History Smoking/Tobacco Use Status: Never Alcohol Intake: never Drug use: Never Do you feel safe at home: Yes Do you feel safe in your relationship?: Yes Exam Const General: cooperative, healthy appearing and no acute distress HENMT Head: normal to inspection Face and sinus: normal facial exam Eyes General: appearance normal, both eyes and all related structures EOM: EOM intact bilaterally Neck Neck: normal visual inspection and No submandibular swelling Lymphatic: no lymphadenopathy noted Chest Chest: normal inspection of the chest and no tenderness Resp Effort & Inspection: normal respiratory effort and able to speak in complete sentences Auscultation: rhonchi (bilaterally, worse in R chest) and wheezes scattered wheezes Cardio Rate: regular rate Rhythm: regular rhythm GI Inspection: normal to inspection Palpation: soft, not firm, not rigid and nontender Auscultation: normal bowel sounds Skin General skin exam: no rashes or lesions noted Neuro General: alert, awake and oriented x3 Cognition: normal cognition Speech: speech normal Motor: muscle tone normal throughout Sensory Exam: no sensory deficits noted Extrem General: normal to inspection, full ROM, normal capillary refill, no calf tenderness bilaterally and no edema Psych Appearance: grossly normal Mental Status: mental status grossly normal Speech and Movement: speech and movement normal Affect: normal affect Course Vital Signs Vital signs: Vital Signs Temperature 98.1 F 06/22/19 16:04 Pulse 80 06/22/19 16:04 Respiratory Rate 06/22/19 16:04 Blood Pressure 120/59 L 06/22/19 16:04 Pulse Oximetry 94 L 06/22/19 16:04 Temperature 98.1 F 06/22/19 16:04 Temperature Source Skin 06/22/19 16:04 Pulse 80 06/22/19 16:04 Respiratory Rate 06/22/19 16:04 Respiratory Effort Non-Labored 06/22/19 16:09 Blood Pressure 120/59 L 06/22/19 16:04 Blood Pressure Position Sitting 06/22/19 16:04 Pulse Oximetry 94 L 06/22/19 16:04 Oxygen Delivery Method Room Air 06/22/19 16:04 Oxygen Flow Rate 0 06/22/19 16:04 Pain Level 9 06/22/19 16:04
[2019-06-22] MEDS: predniSONE 20 MG TAB 60 MG PO (16:58)
[2019-06-22 16:59] VITALS: RESP 4
[2019-06-22] MEDS: Albuterol/Ipratropium 3 ML UPD VIAL UPD (16:59)
--- NOTE | 2019-06-22 17:18 | DI.RAD_ITS ---
EXAM: XR CHEST 2V PA LATERAL CLINICAL HISTORY: cough, sob, r/o acute disease TECHNIQUE: COMPARISON: CHEST 2 VIEWS PA,LAT from 11/14/2017 XR CHEST 2V PA LATERAL from 09/22/2018 FINDINGS: The heart is at the upper limits of normal in size. There is double-lumen central venous catheter t he tip of which lies near the junction of right atrium and SVC. There is some mild pulmonary interstitial diffuse prominence unchanged from prior study of September 2018 and October 2017. No acute consolidation. No pleural effusion. IMPRESSION: No evidence of acute process.
--- NOTE | 2019-06-22 17:29 | DI.VRAD_ITS ---
PROCEDURE INFORMATION: Exam: XR Chest, 2 Views Exam date and time: 06/22/2019 5:21 PM Age: 49 years old Clinical indication: Other: Cough, SOB, R/O acute disease TECHNIQUE: Imaging protocol: XR of the chest Views: 2 views. COMPARISON: CR XR CHEST 2V PA LATERAL 09/22/2018 8:55 PM FINDINGS: Tubes, catheters and devices: Right tunnel catheter terminates in the right atrium. Lungs: Prominent indistinct pulmonary vasculature. No focal consolidation. Pleural space: Unremarkable. No pleural effusion. No pneumothorax. Heart/Mediastinum: Stable enlarged cardiomediastinal silhouette. Bones/joints: Unremarkable. IMPRESSION: Prominent indistinct pulmonary vasculature consistent with edema or atypical infection. No focal consolidation. Dictated and Authenticated by: Russell Craig MD. Ordering:SHARATH Gamble MD
[2019-06-22] MEDS: Albuterol 2.5 MG/3 ML INH SOLN VIAL UPD (18:00)
[2019-06-22] MEDS: Albuterol HFA 8 GM 60 PUFF INH IH (18:02)
[2019-06-22] MEDS: Inhaler, Assist Device 1 EACH MC (18:03)
[2019-06-22 18:13] VITALS: BP 129/65; PULSE 75; RESP 16; TEMP 36.9; O2SAT 98
[2019-06-22 18:15] VITALS: BP 129/65; PULSE 75; RESP 16; TEMP 36.9; O2SAT 98
== END 2019-06-22 18:15 | disposition home or self-care (01) ==
PROVIDERS: Emergency Provider Physician Assistant; PCP Family Medicine
DX: J20.9 Acute bronchitis, unspecified (principal); E10.22 Type 1 diabetes mellitus with diabetic chronic kidney disease; I12.0 Hypertensive chronic kidney disease with stage 5 chronic kidney disease or end stage renal disease; N18.6 End stage renal disease; Z99.2 Dependence on renal dialysis
CPT/HCPCS: 94640; 99284; 71046; 99285; J7512; J7613; J7620

== ENCOUNTER 2019-06-28 19:05 | Emergency (ER) | payer MEDICARE, MEDICAID, SELFPAY ==
[2019-06-28 19:08] VITALS: BP 138/67; PULSE 82; RESP 20; TEMP 36.5; O2SAT 96
--- NOTE | 2019-06-28 19:41 | ED.GENADUL_ITS ---
Discharge Plan Disposition Patient Disposition: HOME Condition: Stable Discharge Details Chief Complaint: RespSymp Clinical Impression: Acute dyspnea Primary Care Provider: Jose Alfredo Galindo ED Provider: Bayron Hernandez Home Meds and New Rx's Prescriptions: New prednisone 20 mg tablet 40 mg PO DAILY 4 Days Qty: 8 RF: 0 No Action Fiasp U-100 Insulin 100 unit/mL solution 40 unit SC DAILY RF: 0 carvedilol 25 MG tablet 25 mg PO TID Qty: 180 RF: 4 aspirin [Ecotrin Low Strength] 81 MG tablet,delayed release (DR/EC) 81 mg PO DAILY RF: 0 (DME) Insulin Pump [id number] 1 EACH misc 1 ea Miscellaneous DIRECTED RF: 0 minoxidil 10 MG tablet 10 mg PO BID RF: 0 ondansetron HCl [Zofran] 4 MG tablet 4 mg PO Q12H PRN Qty: 8 RF: 1 latanoprost [Xalatan] 2.5 ML drops 1 drp OU HS RF: 0 Glucagon Emergency Kit (human) 1 MG kit 1 mg IM/SC HYPOGLYCEMIA PRN Qty: 2 RF: 3 pantoprazole 40 MG tablet,delayed release (DR/EC) 40 mg PO QAM PRNQty: 90 RF: 4 (DME) Blood Glucose Test 1 EACH strip 1 ea Miscellaneous QID Qty: 360 RF: 4 alcohol swabs [Alcohol Pads] 1 EACH pads, medicated 1 ea Topical 6 x/day Qty: 250 RF: 5 (DME) pen needle, diabetic 1 EACH needle 1 ea Miscellaneous 6 x /day Qty: 180 RF: 11 Novolog Flexpen U-100 Insulin 100 UNIT/1 ML insulin pen 3 - 12 u SQ 5x/day Qty: 5 RF: 5 PROVENTIL HFA 18 GM HFA.AER.AD 1 - 2 puff Inhalation Q4H PRN Qty: 1 RF: 5 Lantus U-100 Insulin 100 unit/mL solution 20 unit Sub-Q DAILY Qty: 5 RF: 11 cinacalcet [Sensipar] 30 MG tablet 30 mg PO QPM RF: 0 metoclopramide HCl [Reglan] 10 MG tablet 10 mg PO Q8H PRN (Reason: Nausea / Vomiting) Qty: 10 RF: 0 albuterol sulfate 2.5 MG/3 ML solution for nebulization 2.5 mg Inhalation Q4H PRN (Reason: Shortness Of Breath) Qty: 10 RF: 0 (DME) Aeroneb Go Nebulizer 1 EACH misc 1 ea Miscellaneous DIRECTED Qty: 1 RF: 0 amlodipine 5 MG tablet 5 mg PO DAILY RF: 0 prednisone 20 mg tablet See Rx Instructions .ROUTE .COMPLEX Qty: 12 RF: 0 benzonatate [Tessalon Perles] 100 mg capsule 100 mg PO TID PRN (Reason: cough) Qty: 10 RF: 0 Discharge Instructions Instructions: Dyspnea (ED) Additional Instructions: 1. Follow-up for dialysis tomorrow and evaluation with your numerical control machine tool operator. 2. Continue all medications as prescribed. 3. Acetaminophen 1000mg every 4 hours (up to 5 time a day) and/or ibuprofen 600mg every 6 hours as needed for fever or pain. 4. Prednisone 40 mg once a day for 4 days. Return to the Emergency Department (ED) if your condition worsens, does not improve as expected, or for ANY other concerns. Specifically, return if you have new or uncontrolled pain, worsening fever, difficulty breathing, vomiting, or are unable to drink fluids. Medical Decision Making 49-year-old with a history of diabetes, ESRD (dialysis dependent), and pulmonary hypertension. Returns for persistent dyspnea refractory to recent outpatient management of a bronchitis. Evaluation here had included a chest x-ray suggestive of mild interstitial edema with no focal consolidation. Clinically improved at discharge at that time after albuterol and steroids and reports that he felt cleaning improved for days until he began a steroid taper. Of note, he also describes having had decreased dialysis over the holidays and that he had extra fluid pulled off at dialysis yesterday. Unclear etiology of persistent dyspnea. Discussed increasing duration of prednisone and also continue with dialysis as scheduled tomorrow with more fluid to be removed. He will follow-up with his numerical control machine tool operator tomorrow and was instructed to return here for any worsening dyspnea. Given usual and customary return instructions at time of discharge. Medical Records Medical records reviewed: Yes I reviewed the patient's medical records. HPI 49-year-old man with a past medical history which includes chronic renal failure (dialysis dependent, type 1 diabetes, hypertension, and mild pulmonary hypertension. He reports being evaluated for his pulmonary hypertension 3 years ago. Was recently evaluated here for an acute upper respiratory infection/cough. Evaluation included a chest x-ray suggestive of mild increased interstitial edema with no focal consolidation. Was managed at that time with albuterol and prednisone. Discharged with a prednisone taper. Reports that initially he felt clinically improved but as he has been tapering this medication, has gradually had progressive dyspnea. He also describes having had intermittent dialysis over the holidays and having had a significant amount of fluid removed yesterday during dialysis. On arrival here, is in no distress. He denies fever/chills, chest pain, palpitation, atypical lower extremity edema. He has had no atypical leg pain or swelling and has no history of VTE. General Date/Time Provider Initiated Documentation: 06/28/19 19:19 . Related Data Home Medications Medication Instructions Recorded Confirmed aspirin [Ecotrin Low Strength] 81 mg PO DAILY tab-cap 10/12/12 06/28/19 carvedilol 25 mg PO TID #180 tab-cap 10/12/12 06/28/19 Insulin Pump [id number] ea 02/15/13 06/23/19 cinacalcet [Sensipar] 30 mg PO QPM 04/01/14 06/28/19 minoxidil 10 mg PO BID tab-cap 06/27/14 06/28/19 ondansetron HCl [Zofran] 4 mg PO Q12H PRN #8 tab-cap 08/22/14 06/28/19 Glucagon Emergency Kit (human) 1 mg IM/SC HYPOGLYCEMIA PRN #2 kit 09/11/15 06/28/19 latanoprost [Xalatan] 1 drp OU HS drp 09/11/15 06/28/19 pantoprazole 40 mg PO QAM PRN #90 tab-cap 09/11/15 06/28/19 amlodipine 5 mg PO DAILY 06/16/16 06/28/19 Blood Glucose Test #360 strip 03/10/17 06/23/19 alcohol swabs [Alcohol Pads] 1 ea TOPICAL 6 x/day #250 pad 06/09/17 06/28/19 pen needle, diabetic #180 ndl 06/09/17 06/23/19 Novolog Flexpen U-100 Insulin 3 - 12 u SQ 5x/day #5 pen 06/12/17 06/28/19 Aeroneb Go Nebulizer #1 ea 11/14/17 06/23/19 albuterol sulfate 2.5 mg INHALATION Q4H PRN #10 vial 11/14/17 06/28/19 metoclopramide HCl [Reglan] 10 mg PO Q8H PRN #10 tab 11/14/17 06/28/19 insulin aspart (niacinamide) 100 40 unit SC DAILY ml 08/03/18 06/28/19 unit/mL subcutaneous solution insulin glargine 100 unit/mL 20 unit SUB-Q DAILY #5 ml 03/01/19 06/28/19 subcutaneous solution benzonatate [Tessalon Perles] 100 mg PO TID PRN #10 cap 06/22/19 06/28/19 prednisone See Rx Instructions .ROUTE 06/22/19 06/28/19 .COMPLEX #12 tab prednisone 40 mg PO DAILY 4 Days #8 tab 06/28/19 Previous Rx's Medication Instructions Recorded Blood Glucose Test #360 strip 03/10/17 alcohol swabs [Alcohol Pads] 1 ea TOPICAL 6 x/day #250 pad 06/09/17 pen needle, diabetic #180 ndl 06/09/17 Novolog Flexpen U-100 Insulin 3 - 12 u SQ 5x/day #5 pen 06/12/17 Aeroneb Go Nebulizer #1 ea 11/14/17 albuterol sulfate 2.5 mg INHALATION Q4H PRN #10 vial 11/14/17 metoclopramide HCl [Reglan] 10 mg PO Q8H PRN #10 tab 11/14/17 insulin glargine 100 unit/mL 20 unit SUB-Q DAILY #5 ml 03/01/19 subcutaneous solution benzonatate [Tessalon Perles] 100 mg PO TID PRN #10 cap 06/22/19 prednisone See Rx Instructions .ROUTE 06/22/19 .COMPLEX #12 tab prednisone 40 mg PO DAILY 4 Days #8 tab 06/28/19 Allergies Allergy/AdvReac Type Severity Reaction Status Date / Time Penicillins Allergy Severe HIVES Unverified 06/23/19 12:55 vancomycin Allergy Unknown sweats, Unverified 06/23/19 12:55 chills rash cigarette smoke Allergy Unverified 06/23/19 12:55 simvastatin AdvReac Intermediate MYOPATHY Unverified 06/23/19 12:55 morphine AdvReac Nausea Unverified 06/23/19 12:55 MOLD AND SMUT Allergy Severe ANAPHALAXSI Uncoded 06/23/19 12:55 S General Stated Complaint: RespSymp ARPITA: 4 Review of Systems All systems reviewed & are unremarkable except as noted in HPI and below PFSH Medical History Chronic renal failure syndrome Diabetes mellitus type 1 Essential hypertension Gastroparesis Hyperlipidemia Surgical History Cholecystectomy (~2000) Fracture, Open Treatment RIGHT ANKLE 07/18/14 Family History Mother No problems noted. Father No problems noted. Sister No problems noted. Grandfather No problems noted. Grandfather No problems noted. Grandmother No problems noted. Grandmother No problems noted. Social History Smoking/Tobacco Use Status: Never Alcohol Intake: never Drug use: Never Do you feel safe at home: Yes Do you feel safe in your relationship?: Yes Exam Narrative Exam Narrative: Nursing note and vital signs have been reviewed and noted. GENERAL: alert, active, no acute distress, well -hydrated, well-nourished HEENT: atraumatic/normocephalic, PERRLA, EOMI, conjunctiva clear, external ears/canals normal, nasal mucosa normal NECK: supple, full range of motion, no mass, normal lymphadenopathy, no thyromegaly CARDIOVASCULAR: RRR, no murmurs, nl pulses, no edema PULMONARY: nl effort, bibasilar rhonchi. no chest wall tenderness ABDOMEN: soft, non-tender, non-distended, no mass, no organomegaly EXTREMITY: normal muscle tone, all joints with FROM, no deformity or tenderness SKIN: no exanthem appreciated NEURO: gross motor exam normal, normal stance and gait PSYCH: alert and oriented, Course Vital Signs Vital signs: Vital Signs Temperature 97.7 F 06/28/19 19:08 Pulse 82 06/28/19 19:08 Respiratory Rate 20 06/28/19 19:08 Blood Pressure 138/67 06/28/19 19:08 Pulse Oximetry 96 06/28/19 19:08 Temperature 97.7 F 06/28/19 19:08 Temperature Source Skin 06/28/19 19:08 Pulse 82 06/28/19 19:08 Respiratory Rate 20 06/28/19 19:08 Respiratory Effort Non-Labored 06/28/19 19:13 Respiratory Depth Normal 06/28/19 19:13 Blood Pressure 138/67 06/28/19 19:08 Blood Pressure Position Sitting 06/28/19 19:08 Pulse Oximetry 96 06/28/19 19:08 Oxygen Delivery Method Room Air 06/28/19 19:08 Oxygen Flow Rate 0 06/28/19 19:08 Pain Level 5 06/28/19 19:08
[2019-06-28] MEDS: predniSONE 20 MG TAB 40 MG PO (19:44)
== END 2019-06-28 19:50 | disposition home or self-care (01) ==
LOC: ER 22:24
PROVIDERS: Emergency Provider Emergency Medicine; PCP Family Medicine
DX: R06.00 Dyspnea, unspecified (principal); E10.22 Type 1 diabetes mellitus with diabetic chronic kidney disease; N18.6 End stage renal disease; Z99.2 Dependence on renal dialysis; I12.0 Hypertensive chronic kidney disease with stage 5 chronic kidney disease or end stage renal disease
CPT/HCPCS: 99283; J7512

== ENCOUNTER 2020-01-13 02:31 | Outpatient (CLI) | payer MEDICARE, MEDICAID, SELFPAY ==
[2020-01-13 15:43] LABS: Hemoglobin A1C 8.5 % (3.8-5.6)
[2020-01-13 16:48] LABS: HDL Cholesterol 71 mg/dL (40-60); LDL CHOLESTEROL 122 mg/dL (<100); TSH 1.31 uIU/mL (0.36-3.74)
== END 2020-01-13 02:51 ==
PROVIDERS: PCP Family Medicine; Visit Provider Internal Medicine Endocrinology, Diabetes & Metabolism
DX: E10.22 Type 1 diabetes mellitus with diabetic chronic kidney disease (principal); N18.6 End stage renal disease
CPT/HCPCS: 36415; 83721; 83036; 83718; 84443

== ENCOUNTER 2020-08-13 21:32 | Outpatient (REF) | payer MEDICARE, MEDICAID, SELFPAY ==
[2020-08-13 22:03] LABS: ALT 23 U/L (16-63); AST 15 U/L (15-37); Albumin 3.9 g/dL (3.4-5.0); Alkaline Phosphatase 86 U/L (46-116); Anion Gap 10.1 mmol/L (3-11); BUN 26 mg/dL (7-18); Bilirubin, Total 0.4 mg/dL (0.2-1.0); CO2 30.9 mmol/L (21.0-32.0); Calcium 8.7 mg/dL (8.5-10.1); Chloride 101 mmol/L (98-107); Estimated GFR 15.46 (mL/min/1.73m2); Glucose 217 mg/dL (74-106); Lipase 161 U/L (73-393); Potassium 5.1 mmol/L (3.5-5.1); Sodium 142 mmol/L (136-145); Total Protein 7.1 g/dL (6.4-8.2)
[2020-08-13 22:27] LABS: CREATININE 4.1 mg/dL (0.70-1.30)
== END 2020-08-13 21:33 | disposition home or self-care (01) ==
LOC: LBN 21:32
PROVIDERS: PCP Family Medicine; Visit Provider Nurse Practitioner Family
DX: R10.11 Right upper quadrant pain (principal)
CPT/HCPCS: 80053; 83690

== ENCOUNTER 2020-08-14 19:28 | Outpatient (CLI) | payer MEDICARE, MEDICAID, SELFPAY ==
--- NOTE | 2020-08-14 09:15 | DI.US_ITS ---
EXAM: US ABDOMEN CLINICAL HISTORY: RUQ pain. ? MASS, R10.11 TECHNIQUE: Ultrasound abdomen performed using standard protocol. COMPARISON: CT ABD PELVIS WO CONTRAST from 11/08/2017 CT ABD PELVIS WO CONTRAST from 11/08/2017 FINDINGS: LIVER: Normal size and echogenicity. No focal liver lesions are seen.. GALLBLADDER: Status post cholecystectomy. No biliary dilatation. . BILIARY SYSTEM: No intrahepatic or extrahepatic biliary ductal dilation. KIDNEYS: Innumerable bilateral cysts. Parenchymal thinning. PANCREAS: Normal where visualized. SPLEEN: Not enlarged. ABDOMINAL AORTA : Visualized portions normal caliber. ASCITES: None seen. Area of the palpable abnormality in the right anterior abdominal wall was scanned. This corresponds to a fatty echogenicity lesion measuring 3.2 x 2.8 x 2.9 cm, consistent with a lipoma. IMPRESSION: 3.2 centimeter right upper quadrant anterior abdominal wall lipoma. Bilateral renal cysts. Status post cholecystectomy. DATA REPOSITORY:
== END 2020-08-14 19:29 ==
LOC: DI 08-16 19:31
PROVIDERS: PCP Family Medicine; Visit Provider Nurse Practitioner Family
DX: R10.11 Right upper quadrant pain (principal); D17.1 Benign lipomatous neoplasm of skin and subcutaneous tissue of trunk
CPT/HCPCS: 76700

== ENCOUNTER 2020-10-16 03:32 | Outpatient (CLI) | payer MEDICARE, MEDICAID, SELFPAY ==
[2020-10-16 10:11] LABS: Estimated GFR 8.93 (mL/min/1.73m2); LDL CHOLESTEROL 141 mg/dL (<100)
[2020-10-16 10:16] LABS: Hemoglobin A1C 5.7 % (<5.7)
[2020-10-16 11:05] LABS: CREATININE 6.6 mg/dL (0.70-1.30)
== END 2020-10-16 03:33 | disposition home or self-care (01) ==
PROVIDERS: PCP Family Medicine; Visit Provider Nurse Practitioner Family
DX: E10.8 Type 1 diabetes mellitus with unspecified complications (principal)
CPT/HCPCS: 36415; 83721; 82565; 83036

== ENCOUNTER 2021-01-18 08:10 | Outpatient (REF) | payer MEDICARE, MEDICAID, SELFPAY ==
[2021-01-18 17:58] LABS: Hemoglobin A1C 7.6 % (<5.7)
== END 2021-01-18 08:11 | disposition home or self-care (01) ==
LOC: LBN 08:10
PROVIDERS: PCP Family Medicine; Visit Provider Family Medicine
DX: R73.9 Hyperglycemia, unspecified (principal)
CPT/HCPCS: 83036

== ENCOUNTER 2021-10-03 13:48 | Emergency (ER) | payer MEDICARE, MEDICAID, SELFPAY ==
[2021-10-03 13:50] VITALS: BP 137/64; PULSE 82; RESP 16; TEMP 37.3; O2SAT 95
--- NOTE | 2021-10-03 14:12 | W.ED.GENAD ---
Discharge Plan Disposition Patient Disposition: HOME Condition: Stable Discharge Details Clinical Impression: Mass of right lung, Mediastinal adenopathy, Hilar adenopathy, Bone metastases Primary Care Provider: Jose Alfredo Galindo ED Provider: Mavis Otero Home Meds and New Rx's Prescriptions: New diazepam [Valium] 5 mg tablet 5 mg PO TID PRN (Reason: muscle spasm) Qty: 10 0RF Continued Fiasp U-100 Insulin 100 unit/mL solution 40 unit SC DAILY 0RF diazepam 5 mg tablet 5 mg PO QHS PRN (Reason: sleep) Qty: 7 0RF calcium acetate 667 mg tablet See Rx Instructions PO ONCE 0RF Rx Instructions: He takes 5 with each meal and 3 with snacks. He has about 3 meals a day and 3 snacks a day PO once; albuterol sulfate [Ventolin HFA] 90 mcg/actuation HFA aerosol inhaler 2 puff inhalation Q6H PRN (Reason: shortness of breath or wheezing) Qty: 8.5 1RF carvedilol 25 MG tablet 25 mg PO TID Qty: 180 4RF Label Comments: 10/01/16 1 TID. si Rx Instructions: 1 TAB BID aspirin [Ecotrin Low Strength] 81 MG tablet,delayed release (DR/EC) 81 mg PO DAILY 0RF (DME) Insulin Pump [id number] 1 EACH misc 1 ea Miscellaneous DIRECTED 0RF Label Comments: insulin pump Rx Instructions: novolog via pump (managed by [facility] endocrine) minoxidil 10 MG tablet 10 mg PO BID 0RF latanoprost [Xalatan] 2.5 ML drops 1 drp OU HS 0RF Glucagon Emergency Kit (human) 1 MG kit 1 mg IM/SC HYPOGLYCEMIA PRN Qty: 2 3RF (DME) Blood Glucose Test 1 EACH strip 1 ea Miscellaneous QID Qty: 360 4RF Rx Instructions: Contour next test strip dx: 250.03 type I diabetes with poor control and complications alcohol swabs [Alcohol Pads] 1 EACH pads, medicated 1 ea Topical 6 x/day Qty: 250 5RF (DME) pen needle, diabetic 1 EACH needle 1 ea Miscellaneous 6 x /day Qty: 180 11RF insulin aspart U-100 [Novolog Flexpen U-100 Insulin] 100 UNIT/1 ML insulin pen 3 - 12 u SQ 5x/day Qty: 5 5RF Rx Instructions: If insulin pump fails boluses before eating PROVENTIL HFA 18 GM HFA.AER.AD 1 - 2 puff Inhalation Q4H PRN Qty: 1 5RF baclofen 10 mg tablet 10 mg PO BID PRN (Reason: back pain) Qty: 15 0RF cinacalcet [Sensipar] 30 MG tablet 30 mg PO HS 0RF albuterol sulfate 2.5 MG/3 ML solution for nebulization 2.5 mg Inhalation Q4H PRN (Reason: Shortness Of Breath) Qty: 10 0RF Label Comments: no longer has (DME) Aeroneb Go Nebulizer 1 EACH misc 1 ea Miscellaneous DIRECTED Qty: 1 0RF amlodipine 5 MG tablet 5 mg PO DAILY 0RF Label Comments: pt took this med in the ER on his own w/o MD's knowledge. 06/19/16 rl Lantus U-100 Insulin 100 unit/mL solution 20 unit Sub-Q DAILY PRN0RF Rx Instructions: USE IF INSULIN PUMP FAILS Veltassa 8.4 gram powder in packet 8.4 gm PO HS 0RF Rx Instructions: K binder No Action oxycodone-acetaminophen [Percocet] 5-325 mg tablet 1 tab PO TID PRNQty: 8 0RF oxycodone-acetaminophen [Percocet] 5-325 mg tablet 1 tab PO Q8H PRNQty: 8 0RF Discharge Instructions Instructions: Pulmonary Nodules (ED), Bone Metastasis (ED), Needle Biopsy of the Lung (DC) Additional Instructions: Your imaging today shows evidence of a nodule within your right lung and enlarged lymph nodes within your chest and abdomen in addition to bony lesions noted within your thoracic and lumbar spine. These findings are concerning and need further evaluation with a PET scan which can be ordered through your primary care doctor and likely need referral for tissue sampling which is usually done with a bronchoscopy procedure at [facility]. You have been placed on care management's list to help arrange for a follow-up appointment with your primary care doctor within the next few days and for referral for PET scan and potential tissue biopsy of your lung at [facility]. Due to having the CT scan today with IV contrast, it is imperative that you follow-up for your scheduled dialysis session tomorrow. You are being sent home with Valium to take as needed and directed for pain. Return immediately to the emergency department if you develop any worsening or new concerning symptoms. Discharge Data Discharge Date/Time-TO BE ENTERED AT DEPARTURE: 10/03/21 20:14 Discharge Physician: Mavis Otero Medical Decision Making 51-year-old male with a history of hypertension, hyperlipidemia, diabetes and end-stage renal disease on dialysis presents for right mid back pain with radiation around to his right mid chest for the past 4 months, worse with movement and deep breath. Vitals within normal limits. Oxygen saturation noted to be low 90s on room air. Equal breath sounds. He is tender to palpation to his right mid back and right lateral chest. No focal deficits. Suspect most likely musculoskeletal or pinched nerve. As he does endorse a pleuritic component and is mildly hypoxic, will obtain screening labs, D-dimer and obtain a CT chest abdomen and pelvis. Labs and imaging reviewed. Hemoglobin 9.6. D-dimer 839. Potassium 5.5, creatinine 5.9 Ct notes: IMPRESSION: Right-sided pulmonary opacities, indeterminate, infectious versus neoplastic. Diffuse chest abdomen and pelvis adenopathy Cardiomegaly and coronary artery calcification Question renal osteodystrophy versus diffuse neoplastic involvement of bone, multiple thoracic and lumbar spine lytic lesions including a T3 vertebral body lesion which involves inferior endplate and posterior vertebral cortex, additional evaluation with MR may be obtained if clinically appropriate Nodular hepatic contour suggesting cirrhosis. Results discussed with patient. Patient states he no longer makes any urine for several years. Discussed that we could consider obtaining a VQ scan tomorrow and he states that he has had a previous reaction to a nuclear medicine scan for his kidneys in the past. He states he developed shortness of breath and vomiting. Unclear if this would have the same reaction. Discussed with hospitalist service and as patient would receive receiving dialysis at 7 AM, can consider proceeding with CT chest with contrast to rule out PE. Patient states he is agreeable with this plan. His other extensive results were explained and that he will need to follow-up with his primary care doctor for likely PET scan. He has normal mental status and no obvious focal deficits, do not seen indication for urgent brain imaging at this time. CT chest w/ contrast notes: IMPRESSION: 1. No acute pulmonary embolism is identified. 2. A 15 mm noncalcified nodule with subtle spiculation of its margins is seen in the middle lobe with a smaller 10 mm subsolid noncalcified nodule seen at the anterolateral right lung base; malignancy is of concern.? Consider non-emergent PET/CT, or tissue sampling.(Reference: Tucker Gold et al. Guidelines for Management of Incidental Pulmonary Nodules Detected on CT Images: From the Fleischner Society 2017. Radiology. 2017;284(1):228-243. 3. Mediastinal and right hilar adenopathy are concerning for metastatic disease 4.? Irregular lucency involving the vertebral body of T3 and smaller lucencies involving additional thoracic vertebrae are concerning for bony metastases.? Results reviewed with patient at bedside. Discussed that these findings are likely the source of his chronic right mid back pain. Patient did admit to some relief with Valium. Patient does feel comfortable going home. Discussed that it is imperative that he follows up with his scheduled dialysis session tomorrow morning due to his CT with IV contrast today. Patient placed on care management list to help arrange for a follow-up appointment with his primary care doctor's office within the next few days for referral for PET scan and tissue sampling likely through bronchoscopy at [facility]. Patient is aware of this plan and feels comfortable going home. Usual and customary return precautions given prior to discharge. Medical Records Medical records reviewed: Yes I reviewed the patient's medical records. Imaging Data Radiologic Study: Radiologist's impression: ?CT CHEST/ABD/PEL WO CLINICAL HISTORY:? R mid back pain, radiating to R mid chest TECHNIQUE:? COMPARISON:? CT ABD ? PELVIS WO CONTRAST from 11/08/2017 FINDINGS: CT examination of the chest, abdomen, and pelvis was performed without contrast administration. There is an apparent double lumen catheter in place the tip of which resides in the right atrium. Bones are diffusely sclerotic with this superimposed somewhat moth-eaten appearance.? Multiple lytic lesions are present which appear well circumscribed in the thoracic and lumbar spine, the most prominent findings are at the T3 vertebral body level, where there is an irregular lytic lesion measuring up to about 2 cm in diameter which involves the inferior endplate and extends into the posterior vertebral cortex.? Additional evaluation with MR may be obtained to evaluate neural involvement and to further characterize the bony changes..? The findings raise the possibility of renal osteodystrophy, the patient has apparent polycystic renal disease.? Otherwise, neoplastic disease would be suggested. Heart is enlarged.? No thoracic aortic aneurysm.? The there are multiple coronary artery calcifications.? There is no pleural effusion.? There are diffuse mild changes of COPD.? There are multiple small calcified pulmonary nodules.? There are areas of localized pulmonary opacity in right upper lobe and right middle lobe which appear to be predominantly ground-glass with central areas of consolidation.? Findings are nonspecific but may represent infectious or neoplastic disease. There is diffuse mild mediastinal and supraclavicular adenopathy. Note is made of innumerable bilateral renal cysts consistent with polycystic renal disease.? No gross hydronephrosis.? Adrenals appear normal. Liver has a nodular contour contour consistent with cirrhosis.? Gallbladder is been surgically removed.? No biliary dilatation.? Grossly unremarkable appearance of pancreas and spleen. Mild diffuse abdominal lymphadenopathy is noted. No evidence of bowel obstruction.? No gross abdominal wall hernia.? Urinary bladder is empty.? Prostate is mildly enlarged.? No abdominal aortic aneurysm. IMPRESSION: Right-sided pulmonary opacities, indeterminate, infectious versus neoplastic. Diffuse chest abdomen and pelvis adenopathy Cardiomegaly and coronary artery calcification Question renal osteodystrophy versus diffuse neoplastic involvement of bone, multiple thoracic and lumbar spine lytic lesions including a T3 vertebral body lesion which involves inferior endplate and posterior vertebral cortex, additional evaluation with MR may be obtained if clinically appropriate Nodular hepatic contour suggesting cirrhosis. CTA Chest With Contrast Exam date and time: 10/03/2021 5:51 PM Age: 51 years old Clinical indication: Other: R pulmonary opacity/ adenopathy TECHNIQUE: Imaging protocol: Computed tomographic angiography of the chest with contrast. 3D rendering (Not supervised by radiologist): MIP and/or 3D reconstructed images were created by the technologist. Contrast material: 350; Contrast volume: 65 ml; Contrast route: INTRAVENOUS (IV);? COMPARISON: CT CHEST/ABD/PEL WO 10/03/2021 3:10 PM FINDINGS: Pulmonary arteries: There is adequate opacification of blood within the main pulmonary outflow tract, right and left pulmonary arteries and major lobar and segmental branches to both lungs with no pulmonary embolism detected. Aorta: Unremarkable. No aortic aneurysm. No aortic dissection. Lungs:? Small calcified subcentimeter granulomas are scattered throughout the lower lung zones bilaterally.? A 10 mm subsolid noncalcified nodular densities seen at the anterolateral right lung base (see image 360, series 6).? And a 15 mm ovoid noncalcified nodular density with subtle spiculation of its margins is seen in the central parenchyma of the middle lobe (see image 287, series 6).? Stranded linear postinflammatory densities are also seen at both posterior lung bases with no other pulmonary nodules or parenchymal mass lesions detected.? Pleural spaces: No pneumothorax or pleural effusion. Heart: Heart size is normal and there is no evidence of pericardial effusion or right heart strain. Lymph nodes:? Multiple shotty AP window, paratracheal and subcarinal lymph nodes are identified with a few shotty right hilar lymph nodes also evident.? Bones/joints:? Permeative lucency is seen involving the vertebral body of T3 with smaller lucencies also seen involving the vertebral body of T2 and a few additional vertebral bodies near the thoracolumbar junction.? Soft tissues: Unremarkable. IMPRESSION: 1. No acute pulmonary embolism is identified. 2. A 15 mm noncalcified nodule with subtle spiculation of its margins is seen in the middle lobe with a smaller 10 mm subsolid noncalcified nodule seen at the anterolateral right lung base; malignancy is of concern.? Consider non-emergent PET/CT, or tissue sampling.(Reference: Tucker H, et al. Guidelines for Management of Incidental Pulmonary Nodules Detected on CT Images: From the Fleischner Society 2017. Radiology. 2017;284(1):228-243. 3. Mediastinal and right hilar adenopathy are concerning for metastatic disease 4.? Irregular lucency involving the vertebral body of T3 and smaller lucencies involving additional thoracic vertebrae are concerning for bony metastases.? Lab Data Lab results reviewed: Yes I reviewed the patient's lab results. Labs: Laboratory Tests Range/Units 10/03/21 10/03/21 10/03/21 14:50 14:50 14:50 WBC (4.4-10.8) 10^3/uL 7.13 RBC (4.36-5.78) 10^6/uL 3.03 L Hgb (13.5-17.5) g/dL 9.6 L Hct (40.0-50.0) % 30.2 L MCV (80-95) fL 99.7 H MCH (27.0-33.0) pg 31.7 MCHC (32.0-36.0) % 31.8 L RDW (11.8-14.1) % 13.2 Plt Count (130-400) 10^3/uL 211 MPV (8.0-11.0) fL 8.2 Immature Gran % 0.6 Neutrophils % 66.5 Lymphocytes % 13.5 Monocytes % 7.6 Eosinophils % 10.7 Basophils % 1.1 Nucleated RBC % % 0 Absolute Neutrophils (1.2-6.7) 10^3/uL 4.75 Absolute Lymphocytes (1.2-3.4) 10^3/uL 0.96 L Absolute Monocytes (0.1-0.8) 10^3/uL 0.54 Absolute Eosinophils (0.0-0.7) 10^3/uL 0.76 H Absolute Basophils (0.0-0.2) 10^3/uL 0.08 D-Dimer (<500) ng/mlFEU 839 H Sodium (136-145) mmol/L 137 Potassium (3.5-5.1) mmol/L 5.5 H Chloride (98-107) mmol/L 98 Carbon Dioxide (21.0-32.0) mmol/L 28.5 Anion Gap (3-11) mmol/L 10.5 BUN (7-18) mg/dL 35 H Creatinine (0.70-1.30) mg/dL 5.9 H* Estimated GFR/1.73 m2 (mL/min/1.73m2) 10.12 Glucose (74-106) mg/dL 259 H Calcium (8.5-10.1) mg/dL 8.6 Total Bilirubin (0.2-1.0) mg/dL 0.4 AST (15-37) U/L 12 L ALT (16-63) U/L 20 Alkaline Phosphatase (46-116) U/L 102 Total Protein (6.4-8.2) g/dL 7.5 Albumin (3.4-5.0) g/dL 3.6 HPI General Mode of arrival: ambulatory. Date/Time Provider Initiated Documentation: 10/03/21 13:49. Limitations to Documentation: no limitations. Information obtained by: patient. HPI Narrative: Patient is a 51-year-old male with a history of diabetes, hypertension, hyperlipidemia, end-stage renal disease on dialysis presents for right mid back pain with radiation to his right mid chest for the past 4 months, worse with movement and deep breaths. He has seen his PCP for this and given baclofen but this was stopped due to his Kyle. He has taken Tylenol without relief. He states he was seen at [facility] a few weeks ago and had a chair x-ray and CAT scan which she states was unremarkable. He states he has had multiple falls over the winter on ice onto his back. Related Data Home Medications Medication Instructions Recorded Confirmed aspirin 81 mg tablet,delayed 81 mg PO DAILY tab-cap 10/12/12 10/07/21 release (Ecotrin Low Strength) carvedilol 25 mg tablet 25 mg PO TID #180 tab-cap 10/12/12 10/07/21 subcutaneous insulin pump (Insulin ea 02/15/13 08/14/21 Pump [id number]) cinacalcet 30 mg tablet (Sensipar) 30 mg PO HS 04/01/14 10/07/21 minoxidil 10 mg tablet 10 mg PO BID tab-cap 06/27/14 10/07/21 glucagon (human recombinant) 1 mg 1 mg IM/SC HYPOGLYCEMIA PRN #2 kit 09/11/15 10/07/21 injection kit (Glucagon Emergency Kit (human-recomb)) latanoprost 0.005 % eye drops 1 drp OU HS drp 09/11/15 10/07/21 (Xalatan) amlodipine 5 mg tablet 5 mg PO DAILY 06/16/16 10/07/21 blood sugar diagnostic (Blood #360 strip 03/10/17 08/14/21 Glucose Test) alcohol swabs (Alcohol Pads) 1 ea TOPICAL 6 x/day #250 pad 06/09/17 10/07/21 pen needle, diabetic 29 gauge x #180 ndl 06/09/17 08/14/21 1/2 insulin aspart U-100 100 unit/mL 3 - 12 u SQ 5x/day #5 pen 06/12/17 10/07/21 (3 mL) subcutaneous pen (Novolog Flexpen U-100 Insulin aspart) albuterol sulfate 2.5 mg (3 mL) INHALATION Q4H PRN 11/14/17 10/07/21 #10 vial nebulizers (Aeroneb Go Nebulizer) #1 ea 11/14/17 08/14/21 insulin aspart (niacinamide) 40 unit SC DAILY ml 08/03/18 10/07/21 (U-100) 100 unit/mL subcutaneous solution (Fiasp U-100 Insulin) diazepam 5 mg tablet 5 mg PO QHS PRN #7 tab 09/16/19 10/07/21 albuterol sulfate 90 mcg/actuation 2 puff INHALATION Q6H PRN #8.5 g 08/14/21 10/07/21 aerosol inhaler (Ventolin HFA) calcium acetate 667 mg tablet See Rx Instructions PO ONCE 08/14/21 10/07/21 baclofen 10 mg tablet 10 mg PO BID PRN #15 tab 08/20/21 10/07/21 diazepam 5 mg tablet (Valium) 5 mg PO TID PRN #10 tab 10/03/21 10/07/21 insulin glargine 100 unit/mL 20 unit SUB-Q DAILY PRN 10/03/21 10/07/21 subcutaneous solution (Lantus U-100 Insulin) patiromer calcium sorbitex 8.4 8.4 gm PO HS 10/03/21 10/07/21 gram oral powder packet (Veltassa) oxycodone-acetaminophen 5 mg-325 1 tab PO Q8H PRN #8 tab 10/07/21 mg tablet (Percocet) oxycodone-acetaminophen 5 mg-325 1 tab PO TID PRN #8 tab 10/07/21 mg tablet (Percocet) Previous Rx's Medication Instructions Recorded blood sugar diagnostic (Blood #360 strip 03/10/17 Glucose Test) alcohol swabs (Alcohol Pads) 1 ea TOPICAL 6 x/day #250 pad 06/09/17 pen needle, diabetic 29 gauge x #180 ndl 06/09/17 1/2 insulin aspart U-100 100 unit/mL 3 - 12 u SQ 5x/day #5 pen 06/12/17 (3 mL) subcutaneous pen (Novolog Flexpen U-100 Insulin aspart) albuterol sulfate 2.5 mg (3 mL) INHALATION Q4H PRN 11/14/17 #10 vial nebulizers (Aeroneb Go Nebulizer) #1 ea 11/14/17 diazepam 5 mg tablet 5 mg PO QHS PRN #7 tab 09/16/19 albuterol sulfate 90 mcg/actuation 2 puff INHALATION Q6H PRN #8.5 g 08/14/21 aerosol inhaler (Ventolin HFA) baclofen 10 mg tablet 10 mg PO BID PRN #15 tab 08/20/21 diazepam 5 mg tablet (Valium) 5 mg PO TID PRN #10 tab 10/03/21 oxycodone-acetaminophen 5 mg-325 1 tab PO Q8H PRN #8 tab 10/07/21 mg tablet (Percocet) oxycodone-acetaminophen 5 mg-325 1 tab PO TID PRN #8 tab 10/07/21 mg tablet (Percocet) Allergies Allergy/AdvReac Type Severity Reaction Status Date / Time mold Allergy Severe Closes off Verified 10/07/21 16:37 his throat Penicillins Allergy Severe HIVES Verified 10/07/21 16:37 vancomycin Allergy Unknown sweats, Verified 10/07/21 16:37 chills rash cigarette smoke Allergy Verified 10/07/21 16:37 simvastatin AdvReac Intermediate MYOPATHY Verified 10/07/21 16:37 hydromorphone [From Dilaudid] AdvReac Unknown Unverified 10/07/21 16:37 morphine AdvReac Nausea Verified 10/07/21 16:37 General Stated Complaint: Nk/Back Pain ARPITA: 3 Review of Systems All systems reviewed & are unremarkable except as noted in HPI and below Constitutional Constitutional: Reports as per HPI, Denies chills, Denies excessive sweating, Denies fatigue and Denies fever(s) Eyes Eyes: Denies blurry vision ENT Ears, Nose, Mouth, and Throat: Denies dizziness, Denies sore throat and Denies throat swelling Cardiovascular Cardiovascular: Denies chest pain and Denies dyspnea Respiratory Respiratory: Denies cough and Denies dyspnea Gastrointestinal Gastrointestinal: Denies abdominal pain, Denies diarrhea and Denies vomiting Genitourinary Genitourinary: Denies hematuria and Denies dysuria Musculoskeletal Musculoskeletal: Reports back pain and Denies numbness Integumentary/Breasts Skin/Breast: Denies lesions and Denies rash Neurologic Neurologic: Denies behavioral changes, Denies confusion, Denies dizziness, Denies localized weakness and Denies numbness Psychiatric Psychiatric: Denies behavioral changes, Denies confusion and Denies depression Endocrine Endocrine: Denies excessive sweating and Denies fatigue Hematologic/Lymphatic Hematologic/Lymphatic: Denies easy bruising and Denies lymphadenopathy Allergic/Immunologic Allergic/Immunologic: Denies throat swelling PFSH All Active Problems (Updated 10/07/21 @ 16:34 by TREVOR Krishnan) Mass of right lung (Acute) Mediastinal adenopathy (Acute) Hilar adenopathy (Acute) Bone metastases (Acute) Upper back pain (Acute) PDR (proliferative diabetic retinopathy) (Acute ~01/31/21) 01/31/21 [facility] B/L Fatigue (Acute) Muscular deconditioning (Chronic) refer to PT Tick bite (Acute) with ongoing redness and arthralgias empiric Doxy x 7 days End-stage renal disease (Chronic) Continue dialysis Not transplant candidate due to PAH Diabetes mellitus (Chronic) Sugar is better. A1c via endo at [facility] Ankle fracture, right (Acute 07/18/14) Carpal tunnel syndrome (Acute) Chest pain (Acute 02/15/13) 2012 cardiac cath at [facility], no signif coronary artery disease Chronic renal failure syndrome (Acute 10/14/12) dialysis at [facility] NOT on [facility] transplant list due to pulm htn Depressive disorder (Acute) Dialysis patient (Acute 11/10/17) Dysfunction of eustachian tube (Acute 10/19/14) Essential hypertension (Acute 04/07/13) Fracture of right ankle (Acute 07/18/14) Gastroesophageal reflux disease (Acute 09/11/15) Gastroparesis (Acute 10/14/12) Hearing loss (Acute 08/22/14) transient at the end of dialysis History of open reduction and internal fixation (ORIF) procedure (Acute) Hyperlipidemia (Acute) Inguinal adenopathy (Acute 06/22/16) Mediastinal adenopathy (Acute 06/22/16) Memory impairment (Acute) TBI 1986 Obstructive sleep apnea syndrome (Acute 02/15/13) dx: 2013 at [facility], unable to tolerate CPAP 07/07, Dr Padgett for oral appliance (unable to kassidy) Plantar wart of left foot (Acute 12/14/14) Pneumonia (Acute 11/02/14) October [address] at [facility] Pneumonia (Acute 11/02/14) Pulmonary hypertension (Acute 03/02/15) 03/06 right heart cath [facility] (PA pressure 86/37) Retroperitoneal bleed (Acute 06/22/16) Status post cholecystectomy (Acute) Type I diabetes mellitus with end-stage renal disease (Acute 10/13/12) Dialysis at [facility] On insulin pump managed by [facility] Type I diabetes mellitus with proliferative retinopathy (Acute 06/05/11) 06/05/11 [facility]; Involutional PDR with out macular edema in both eyes. 04/05/13: [facility]: Stable retinopathy 04/03/16; [facility]; INVOLUTIONAL DIABETIC RETINOPATHY S/P EXTENSIVE PRP OU-stable findings Cough (Acute) Upper respiratory infection (Acute) Poorly controlled type 1 diabetes mellitus (Acute 11/02/14) (since age 6) [facility] endocrine, insulin pump Type 1 diabetes mellitus without complications (Chronic) Trimalleolar fracture of right ankle (Acute 07/18/14) Fall due to ice or snow (Acute 07/18/14) Chronic kidney disease requiring chronic dialysis (Chronic) Hyperkalemia (Chronic) Medical History (Updated 10/07/21 @ 16:34 by TREVOR Krishnan) Chronic renal failure syndrome Diabetes mellitus type 1 Essential hypertension Gastroparesis Hyperlipidemia Surgical History Cholecystectomy (~2000) Fracture, Open Treatment RIGHT ANKLE 07/18/14 Family History Mother No problems noted. Father No problems noted. Sister No problems noted. Grandfather No problems noted. Grandfather No problems noted. Grandmother No problems noted. Grandmother No problems noted. Social History (Updated 01/19/21 @ 11:03 by Aisha Alberts) Smoking/Tobacco Use Status: Never Second Hand Exposure: No Smoking risk assessment performed?: Yes Alcohol Intake: never Drug use: Never Substance use type: does not use Household members: family Do you need help understanding health information?: Rarely Pets and animals: No What is your relationship status?: Panel score (0-1 are the most socially isolated patients): 0 Do you feel safe at home: Yes Do you feel safe in your relationship?: Yes Exam Const General: cooperative Orientation: alert, awake and oriented x3 HENMT Head: normal to inspection Ears: hearing grossly normal bilaterally and external ears normal General nose exam: external nose normal Face and sinus: normal facial exam Eyes General: appearance normal, both eyes and all related structures Eyelids: eyelids normal Pupils: PERRL EOM: EOM intact bilaterally Neck Neck: normal visual inspection Lymphatic: no lymphadenopathy noted Chest Chest: normal inspection of the chest Other: Site of dialysis catheter Right upper chest appears clean, dry, intact, without signs of cellulitis. Resp Effort & Inspection: normal respiratory effort and able to speak in complete sentences Auscultation: clear to auscultation bilaterally Cardio Rate: regular rate Rhythm: regular rhythm GI Inspection: normal to inspection Palpation: soft, not firm, no guarding, no hepatosplenomegaly, no masses and nontender Auscultation: normal bowel sounds Back/Spine/Pelvis Back: no CVA tenderness Back/spine/pelvis image: 1. Localized area of tenderness to the right lateral and mid back. No rash, lesions, ecchymosis, edema, erythema or stepoff. Skin General skin exam: no rashes or lesions noted Neuro General: patient alert and patient awake Cognition: normal cognition Speech: speech normal Gait: normal gait Motor: muscle tone normal throughout and strength 5/5 throughout Sensory Exam: no sensory deficits noted DTR's: Rt Patellar: 1+, Lt Patellar: 1+, Rt Ankle: 1+ and Lt Ankle: 1+ Plantar Reflexes: Equivocal: bilateral (negative babinski b/l ) Extrem General: normal to inspection, full ROM and capillary refill normal Psych Appearance: grossly normal Mental Status: mental status grossly normal Speech and Movement: speech and movement normal Affect: normal affect Thought Process: normal Course Vital Signs Vital signs: Vital Signs Temperature 99.1 F 10/03/21 13:50 Pulse 82 10/03/21 13:50 Respiratory Rate 16 10/03/21 13:50 Blood Pressure 137/64 10/03/21 13:50 Pulse Oximetry 95 10/03/21 13:50 Temperature 99.1 F 10/03/21 13:50 Temperature Source Skin 10/03/21 13:50 Pulse 82 10/03/21 13:50 Respiratory Rate 16 10/03/21 13:50 Blood Pressure 137/64 10/03/21 13:50 Blood Pressure Position Sitting 10/03/21 13:50 Pulse Oximetry 95 10/03/21 13:50 Oxygen Delivery Method Room Air 10/03/21 13:50 Oxygen Flow Rate 0 10/03/21 13:50 Pain Level 6 10/03/21 13:50
--- NOTE | 2021-10-03 14:30 | DI.CT_ITS ---
Exam(s) CT CHEST/ABD/PEL WO EXAM: CT CHEST/ABD/PEL WO CLINICAL HISTORY: R mid back pain, radiating to R mid chest TECHNIQUE: COMPARISON: CT ABD PELVIS WO CONTRAST from 11/08/2017 FINDINGS: CT examination of the chest, abdomen, and pelvis was performed without contrast administration. There is an apparent double lumen catheter in place the tip of which resides in the right atrium. Bones are diffusely sclerotic with this superimposed somewhat moth-eaten appearance. Multiple lytic lesions are present which appear well circumscribed in the thoracic and lumbar spine, the most promin ent findings are at the T3 vertebral body level, where there is an irregular lytic lesion measuring u p to about 2 cm in diameter which involves the inferior endplate and extends into the posterior verte bral cortex. Additional evaluation with MR may be obtained to evaluate neural involvement and to fur ther characterize the bony changes.. The findings raise the possibility of renal osteodystrophy, the patient has apparent polycystic renal disease. Otherwise, neoplastic disease would be suggested. Heart is enlarged. No thoracic aortic aneurysm. The there are multiple coronary artery calcificatio ns. There is no pleural effusion. There are diffuse mild changes of COPD. There are multiple small calcified pulmonary nodules. There are areas of localized pulmonary opacity in right upper lobe and right middle lobe which appear to be predominantly ground-glass with central areas of consolidation. Findings are nonspecific but may represent infectious or neoplastic disease. There is diffuse mild mediastinal and supraclavicular adenopathy. Note is made of innumerable bilateral renal cysts consistent with polycystic renal disease. No gross hydronephrosis. Adrenals appear normal. Liver has a nodular contour contour consistent with cirrhosis. Gallbladder is been surgically remove d. No biliary dilatation. Grossly unremarkable appearance of pancreas and spleen. Mild diffuse abdominal lymphadenopathy is noted. No evidence of bowel obstruction. No gross abdominal wall hernia. Urinary bladder is empty. Prosta te is mildly enlarged. No abdominal aortic aneurysm. IMPRESSION: Right-sided pulmonary opacities, indeterminate, infectious versus neoplastic. Diffuse chest abdomen and pelvis adenopathy Cardiomegaly and coronary artery calcification Question renal osteodystrophy versus diffuse neoplastic involvement of bone, multiple thoracic and roshan mbar spine lytic lesions including a T3 vertebral body lesion which involves inferior endplate and po sterior vertebral cortex, additional evaluation with MR may be obtained if clinically appropriate Nodular hepatic contour suggesting cirrhosis. RADIATION DOSE DELIVERED: Total DLP !Error CTDIvol RADIATION OPTIMIZATION: All CT scans at this facility use at least one of these dose optimization te chniques: automated exposure control; mA and/or kV adjustment per patient size (includes targeted exa ms where dose is matched to clinical indication); or iterative reconstruction.
[2021-10-03 14:56] LABS: Abs Immature Grans 0.04 10^3/uL (0.0-0.06); Absolute Basophil Count 0.08 10^3/uL (0.0-0.2); Absolute Eosinophil Count 0.76 10^3/uL (0.0-0.7); Absolute Lymphocyte Count 0.96 10^3/uL (1.2-3.4); Absolute Monocyte Count 0.54 10^3/uL (0.1-0.8); Absolute Neutrophil Count 4.75 10^3/uL (1.2-6.7); Basophils % 1.1; Eosinophils % 10.7; HCT 30.2 % (40.0-50.0); HGB 9.6 g/dL (13.5-17.5); Immature Grans % 0.6; Lymphocytes % 13.5; MCH 31.7 pg (27.0-33.0); MCHC 31.8 % (32.0-36.0); MCV 99.7 fL (80-95); MPV 8.2 fL (8.0-11.0); Monocytes % 7.6; Neutrophils % 66.5; Nucleated RBC 0 %; Platelet Count 211 10^3/uL (130-400); RBC 3.03 10^6/uL (4.36-5.78); RDW 13.2 % (11.8-14.1); RDW-SD 47.5 fL; WBC 7.13 10^3/uL (4.4-10.8)
[2021-10-03 15:11] LABS: ALT 20 U/L (16-63); AST 12 U/L (15-37); Albumin 3.6 g/dL (3.4-5.0); Alkaline Phosphatase 102 U/L (46-116); Anion Gap 10.5 mmol/L (3-11); BUN 35 mg/dL (7-18); Bilirubin, Total 0.4 mg/dL (0.2-1.0); CO2 28.5 mmol/L (21.0-32.0); Calcium 8.6 mg/dL (8.5-10.1); Chloride 98 mmol/L (98-107); Estimated GFR 10.12 (mL/min/1.73m2); Glucose 259 mg/dL (74-106); Potassium 5.5 mmol/L (3.5-5.1); Sodium 137 mmol/L (136-145); Total Protein 7.5 g/dL (6.4-8.2)
[2021-10-03 15:13] LABS: CREATININE 5.9 mg/dL (0.70-1.30)
[2021-10-03] MEDS: diazePAM 5 MG TAB PO (15:33)
[2021-10-03 15:48] LABS: D-Dimer 839 ng/mlFEU (<500)
[2021-10-03 16:03] VITALS: BP 138/69; PULSE 77; RESP 14; TEMP 36.7; O2SAT 94
--- NOTE | 2021-10-03 17:30 | DI.CT_ITS ---
Exam(s) CT CHEST PE CTA EXAM: CT CHEST PE CTA CLINICAL HISTORY: R pulmonary opacity/adenopathy, r/o PE. TECHNIQUE: Imaging Protocol: Axial CT angiography was performed with multi-slice acquisition and mu lti-planar and/or 3D reconstructions. CONTRAST MATERIAL: Intravenous: Omnipaque 350 Contrast volume:65 mL COMPARISON: CT CT CHEST/ABD/PEL WO from 10/03/2021 FINDINGS: The pulmonary arteries are well opacified. There is no evidence of a pulmonary artery embolus. The thoracic aorta is of normal caliber air. No evidence of thoracic aortic aneurysm or dissection. Ath erosclerosis is present. There has been otherwise no significant change in appearance of the CT scan of the chest since the examination 2-1/2 hours prior. IMPRESSION: 1. No evidence of pulmonary embolism, thoracic aortic dissection or aneurysm. 2. No significant change in the appearance of the CT scan of the chest since the examination from [facility] in the day. (A non CT scan of the chest, abdomen and pelvis was performed 2-1/2 hours prior to this CT angiography of the chest. RADIATION DOSE DELIVERED: 376.07mGy.cm Total DLP DATA REPOSITORY: All CT scans at this facility are submitted to the National Radiology Data Registry (NRDR) Dose Index Registry (DIR) with the [employer] ([employer]). RADIATION OPTIMIZATION: All CT scans at this facility use at least one of these dose optimization te chniques: automated exposure control; mA and/or kV adjustment per patient size (includes targeted exa ms where dose is matched to clinical indication); or iterative reconstruction.
--- NOTE | 2021-10-03 18:54 | DI.VRAD_ITS ---
PROCEDURE INFORMATION: Exam: CTA Chest With Contrast Exam date and time: 10/03/2021 5:51 PM Age: 51 years old Clinical indication: Other: R pulmonary opacity/ adenopathy TECHNIQUE: Imaging protocol: Computed tomographic angiography of the chest with contrast. 3D rendering (Not supervised by radiologist): MIP and/or 3D reconstructed images were created by the technologist. Contrast material: 350; Contrast volume: 65 ml; Contrast route: INTRAVENOUS (IV); COMPARISON: CT CHEST/ABD/PEL WO 10/03/2021 3:10 PM FINDINGS: Pulmonary arteries: There is adequate opacification of blood within the main pulmonary outflow tract, right and left pulmonary arteries and major lobar and segmental branches to both lungs with no pulmonary embolism detected. Aorta: Unremarkable. No aortic aneurysm. No aortic dissection. Lungs: Small calcified subcentimeter granulomas are scattered throughout the lower lung zones bilaterally. A 10 mm subsolid noncalcified nodular densities seen at the anterolateral right lung base (see image 360, series 6). And a 15 mm ovoid noncalcified nodular density with subtle spiculation of its margins is seen in the central parenchyma of the middle lobe (see image 287, series 6). Stranded linear postinflammatory densities are also seen at both posterior lung bases with no other pulmonary nodules or parenchymal mass lesions detected. Pleural spaces: No pneumothorax or pleural effusion. Heart: Heart size is normal and there is no evidence of pericardial effusion or right heart strain. Lymph nodes: Multiple shotty AP window, paratracheal and subcarinal lymph nodes are identified with a few shotty right hilar lymph nodes also evident. Bones/joints: Permeative lucency is seen involving the vertebral body of T3 with smaller lucencies also seen involving the vertebral body of T2 and a few additional vertebral bodies near the thoracolumbar junction. Soft tissues: Unremarkable. IMPRESSION: 1. No acute pulmonary embolism is identified. 2. A 15 mm noncalcified nodule with subtle spiculation of its margins is seen in the middle lobe with a smaller 10 mm subsolid noncalcified nodule seen at the anterolateral right lung base; malignancy is of concern. Consider non-emergent PET/CT, or tissue sampling.(Reference: Tucker H, et al. Guidelines for Management of Incidental Pulmonary Nodules Detected on CT Images: From the Fleischner Society 2017. Radiology. 2017;284(1):228-243. 3. Mediastinal and right hilar adenopathy are concerning for metastatic disease 4. Irregular lucency involving the vertebral body of T3 and smaller lucencies involving additional thoracic vertebrae are concerning for bony metastases. Dictated and Authenticated by: Ezequiel Salvador MD. Ordering:SHARATH Gamble MD
[2021-10-03 19:57] VITALS: BP 138/69; PULSE 80; RESP 16; TEMP 36.6; O2SAT 96
[2021-10-03] MEDS: diazePAM 5 MG TAB 20 MG PO (20:10)
--- NOTE | 2021-10-03 20:28 | NUR.NOTE ---
Referral faxed to [facility] to f/u from ER [facility], 10/04/21 if at all possible. New diagnosis of lung ca w/mets. Patient needs a referral to [facility] [place] for a pet scan and broncoscopy.Nursing Note:
== END 2021-10-03 20:14 | disposition home or self-care (01) ==
PROVIDERS: Emergency Provider Physician Assistant; PCP Family Medicine
DX: R91.8 Other nonspecific abnormal finding of lung field (principal); R59.0 Localized enlarged lymph nodes; C79.51 Secondary malignant neoplasm of bone; M54.9 Dorsalgia, unspecified; R07.9 Chest pain, unspecified
CPT/HCPCS: 71250; 71275; 80053; 99285; 74176; 85025; 85379; 99284

== ENCOUNTER 2021-10-07 13:47 | Emergency (ER) | payer MEDICARE, MEDICAID, SELFPAY ==
[2021-10-07 13:51] VITALS: BP 135/57; PULSE 82; RESP 18; TEMP 37.2; O2SAT 93
[2021-10-07 15:57] VITALS: BP 119/61; PULSE 75; RESP 17; TEMP 36.9; O2SAT 90
--- NOTE | 2021-10-07 16:31 | ED.GENADUL_ITS ---
Discharge Plan Disposition Patient Disposition: HOME Condition: Stable Discharge Details Clinical Impression: Bone metastases, Upper back pain Primary Care Provider: Jose Alfredo Galindo ED Provider: Tonio Jerry Home Meds and New Rx's Prescriptions: New oxycodone-acetaminophen [Percocet] 5-325 mg tablet 1 tab PO TID PRNQty: 8 0RF oxycodone-acetaminophen [Percocet] 5-325 mg tablet 1 tab PO Q8H PRNQty: 8 0RF Continued Fiasp U-100 Insulin 100 unit/mL solution 40 unit SC DAILY 0RF diazepam 5 mg tablet 5 mg PO QHS PRN (Reason: sleep) Qty: 7 0RF calcium acetate 667 mg tablet See Rx Instructions PO ONCE 0RF Rx Instructions: He takes 5 with each meal and 3 with snacks. He has about 3 meals a day and 3 snacks a day PO once; albuterol sulfate [Ventolin HFA] 90 mcg/actuation HFA aerosol inhaler 2 puff inhalation Q6H PRN (Reason: shortness of breath or wheezing) Qty: 8.5 1RF carvedilol 25 MG tablet 25 mg PO TID Qty: 180 4RF Label Comments: 10/01/16 1 TID. si Rx Instructions: 1 TAB BID aspirin [Ecotrin Low Strength] 81 MG tablet,delayed release (DR/EC) 81 mg PO DAILY 0RF (DME) Insulin Pump [id number] 1 EACH misc 1 ea Miscellaneous DIRECTED 0RF Label Comments: insulin pump Rx Instructions: novolog via pump (managed by [facility] endocrine) minoxidil 10 MG tablet 10 mg PO BID 0RF latanoprost [Xalatan] 2.5 ML drops 1 drp OU HS 0RF Glucagon Emergency Kit (human) 1 MG kit 1 mg IM/SC HYPOGLYCEMIA PRN Qty: 2 3RF (DME) Blood Glucose Test 1 EACH strip 1 ea Miscellaneous QID Qty: 360 4RF Rx Instructions: Contour next test strip dx: 250.03 type I diabetes with poor control and complications alcohol swabs [Alcohol Pads] 1 EACH pads, medicated 1 ea Topical 6 x/day Qty: 250 5RF (DME) pen needle, diabetic 1 EACH needle 1 ea Miscellaneous 6 x /day Qty: 180 11RF insulin aspart U-100 [Novolog Flexpen U-100 Insulin] 100 UNIT/1 ML insulin pen 3 - 12 u SQ 5x/day Qty: 5 5RF Rx Instructions: If insulin pump fails boluses before eating PROVENTIL HFA 18 GM HFA.AER.AD 1 - 2 puff Inhalation Q4H PRN Qty: 1 5RF baclofen 10 mg tablet 10 mg PO BID PRN (Reason: back pain) Qty: 15 0RF cinacalcet [Sensipar] 30 MG tablet 30 mg PO HS 0RF albuterol sulfate 2.5 MG/3 ML solution for nebulization 2.5 mg Inhalation Q4H PRN (Reason: Shortness Of Breath) Qty: 10 0RF Label Comments: no longer has (DME) Aeroneb Go Nebulizer 1 EACH misc 1 ea Miscellaneous DIRECTED Qty: 1 0RF amlodipine 5 MG tablet 5 mg PO DAILY 0RF Label Comments: pt took this med in the ER on his own w/o MD's knowledge. 06/19/16 rl Lantus U-100 Insulin 100 unit/mL solution 20 unit Sub-Q DAILY PRN0RF Rx Instructions: USE IF INSULIN PUMP FAILS Veltassa 8.4 gram powder in packet 8.4 gm PO HS 0RF Rx Instructions: K binder diazepam [Valium] 5 mg tablet 5 mg PO TID PRN (Reason: muscle spasm) Qty: 10 0RF Discharge Instructions Instructions: Back Pain (ED) Additional Instructions: Percocet as directed, may cause drowsiness and/or constipation. You may want take an over the counter stool softener while on this medication. I have placed you back on the resident care supervisor list to help get you fast and efficient follow up at [facility] for you recent concerning CT. Remember, Perocet has Tylenol in it and you must be sure to calculate this into your total daily dose. Please contact you primary care doctor tomorrow to discuss your pain and need for better control. Please watch for new/worsening symptoms and return to the ER for any concerns Discharge Data Discharge Date/Time-TO BE ENTERED AT DEPARTURE: 10/07/21 16:47 Medical Decision Making This is a 51-year-old gentleman with a history of hypertension, hyperlipidemia, diabetes and end-stage renal disease on dialysis who was seen in our ER 4 days ago, extensive work-up provided and diagnosed with mass of the right lung, mediastinal adenopathy, hilar adenopathy, bone metastasis, likely metastatic disease. Patient states that he has not been contacted by [facility] that this is very frustrating, and he wants to follow-up as soon as possible. He also st ates that he would like something for his pain as Tylenol not helping. We had a very transparent conversation. Patient is here for pain control. He does not wish to have repeat laboratory values or CT imaging obtained today that was done simply 4 days ago. I believe this to be perfectly reasonable. In the acute setting, likely little value. I will reach out to our care management team and be sure that he is placed on their list to help expedite outpatient referral and follow-up through [facility]. We discussed pain control. He would prefer oral medication, declines any IV medication. We will provide a single Percocet now and provide a prescription for a total of 8 tablets. Standard discharge and return precautions were provided. We did discuss the need to contact his primary care provider for control of his ongoing discomfort and hopefully [facility] will be reaching out to him in the near future to expedite outpatient follow-up. Patient and family have no additional questions or concerns and are comfortable with this plan. This documentation was generated using [employer] dictation system, please disregard any oddities of phrase or misspellings. Medical Records Medical records reviewed: Yes I reviewed the patient's medical records. HPI General Mode of arrival: ambulatory . Date/Time Provider Initiated Documentation: 10/07/21 13:49 . Limitations to Documentation: no limitations . Information obtained by: patient and family . History of Present Illness 51 year old M presents to the emergency department with the chief complaint of Back pain, described as severe and similar to prior episodes, with intensity rated at 9. Quality is described as aching, and is localized to the back. Patient reports no radiation. Patient started experiencing this week(s) (9) and it has been constant. improves with No relieving factors improve symptom(s), Movement worsens symptoms . Patient notes no other symptoms.. Patient did receive the following treatments prior to arrival, other (Acetaminophen) Related Data Home Medications Medication Instructions Recorded Confirmed aspirin 81 mg tablet,delayed 81 mg PO DAILY tab-cap 10/12/12 10/07/21 release (Ecotrin Low Strength) carvedilol 25 mg tablet 25 mg PO TID #180 tab-cap 10/12/12 10/07/21 subcutaneous insulin pump (Insulin ea 02/15/13 08/14/21 Pump [id number]) cinacalcet 30 mg tablet (Sensipar) 30 mg PO HS 04/01/14 10/07/21 minoxidil 10 mg tablet 10 mg PO BID tab-cap 06/27/14 10/07/21 glucagon (human recombinant) 1 mg 1 mg IM/SC HYPOGLYCEMIA PRN #2 kit 09/11/15 10/07/21 injection kit (Glucagon Emergency Kit (human-recomb)) latanoprost 0.005 % eye drops 1 drp OU HS drp 09/11/15 10/07/21 (Xalatan) amlodipine 5 mg tablet 5 mg PO DAILY 06/16/16 10/07/21 blood sugar diagnostic (Blood #360 strip 03/10/17 08/14/21 Glucose Test) alcohol swabs (Alcohol Pads) 1 ea TOPICAL 6 x/day #250 pad 06/09/17 10/07/21 pen needle, diabetic 29 gauge x #180 ndl 06/09/17 08/14/21 1/2 insulin aspart U-100 100 unit/mL 3 - 12 u SQ 5x/day #5 pen 06/12/17 10/07/21 (3 mL) subcutaneous pen (Novolog Flexpen U-100 Insulin aspart) albuterol sulfate 2.5 mg (3 mL) INHALATION Q4H PRN 11/14/17 10/07/21 #10 vial nebulizers (Aeroneb Go Nebulizer) #1 ea 11/14/17 08/14/21 insulin aspart (niacinamide) 40 unit SC DAILY ml 08/03/18 10/07/21 (U-100) 100 unit/mL subcutaneous solution (Fiasp U-100 Insulin) diazepam 5 mg tablet 5 mg PO QHS PRN #7 tab 09/16/19 10/07/21 albuterol sulfate 90 mcg/actuation 2 puff INHALATION Q6H PRN #8.5 g 08/14/21 10/07/21 aerosol inhaler (Ventolin HFA) calcium acetate 667 mg tablet See Rx Instructions PO ONCE 08/14/21 10/07/21 baclofen 10 mg tablet 10 mg PO BID PRN #15 tab 08/20/21 10/07/21 diazepam 5 mg tablet (Valium) 5 mg PO TID PRN #10 tab 10/03/21 10/07/21 insulin glargine 100 unit/mL 20 unit SUB-Q DAILY PRN 10/03/21 10/07/21 subcutaneous solution (Lantus U-100 Insulin) patiromer calcium sorbitex 8.4 8.4 gm PO HS 10/03/21 10/07/21 gram oral powder packet (Veltassa) oxycodone-acetaminophen 5 mg-325 1 tab PO Q8H PRN #8 tab 10/07/21 mg tablet (Percocet) oxycodone-acetaminophen 5 mg-325 1 tab PO TID PRN #8 tab 10/07/21 mg tablet (Percocet) Previous Rx's Medication Instructions Recorded blood sugar diagnostic (Blood #360 strip 03/10/17 Glucose Test) alcohol swabs (Alcohol Pads) 1 ea TOPICAL 6 x/day #250 pad 06/09/17 pen needle, diabetic 29 gauge x #180 ndl 06/09/17 1/2 insulin aspart U-100 100 unit/mL 3 - 12 u SQ 5x/day #5 pen 06/12/17 (3 mL) subcutaneous pen (Novolog Flexpen U-100 Insulin aspart) albuterol sulfate 2.5 mg (3 mL) INHALATION Q4H PRN 11/14/17 #10 vial nebulizers (Aeroneb Go Nebulizer) #1 ea 11/14/17 diazepam 5 mg tablet 5 mg PO QHS PRN #7 tab 09/16/19 albuterol sulfate 90 mcg/actuation 2 puff INHALATION Q6H PRN #8.5 g 08/14/21 aerosol inhaler (Ventolin HFA) baclofen 10 mg tablet 10 mg PO BID PRN #15 tab 08/20/21 diazepam 5 mg tablet (Valium) 5 mg PO TID PRN #10 tab 10/03/21 oxycodone-acetaminophen 5 mg-325 1 tab PO Q8H PRN #8 tab 10/07/21 mg tablet (Percocet) oxycodone-acetaminophen 5 mg-325 1 tab PO TID PRN #8 tab 10/07/21 mg tablet (Percocet) Allergies Allergy/AdvReac Type Severity Reaction Status Date / Time mold Allergy Severe Closes off Verified 10/07/21 16:37 his throat Penicillins Allergy Severe HIVES Verified 10/07/21 16:37 vancomycin Allergy Unknown sweats, Verified 10/07/21 16:37 chills rash cigarette smoke Allergy Verified 10/07/21 16:37 simvastatin AdvReac Intermediate MYOPATHY Verified 10/07/21 16:37 hydromorphone [From Dilaudid] AdvReac Unknown Unverified 10/07/21 16:37 morphine AdvReac Nausea Verified 10/07/21 16:37 General Stated Complaint: Nk/Back Pain ARPITA: 4 Review of Systems Constitutional Constitutional: Reports fatigue, Denies fever(s) and Denies weakness Cardiovascular Cardiovascular: Denies chest pain and Denies dyspnea Respiratory Respiratory: Denies dyspnea Gastrointestinal Gastrointestinal: Denies abdominal pain, Denies nausea and Denies vomiting Musculoskeletal Musculoskeletal: Reports back pain, Denies numbness and Denies tingling Integumentary/Breasts Skin/Breast: Denies rash Neurologic Neurologic: Denies numbness, Denies tingling and Denies weakness Endocrine Endocrine: Reports fatigue PFSH All Active Problems Mass of right lung (Acute) Mediastinal adenopathy (Acute) Hilar adenopathy (Acute) Bone metastases (Acute) Upper back pain (Acute) PDR (proliferative diabetic retinopathy) (Acute ~01/31/21) 01/31/[place] [facility] [place] Fatigue (Acute) Muscular deconditioning (Chronic) refer to PT Tick bite (Acute) with ongoing redness and arthralgias empiric Doxy x 7 days End-stage renal disease (Chronic) Continue dialysis Not transplant candidate due to PAH Diabetes mellitus (Chronic) Sugar is better. [place] [facility] Ankle fracture, right (Acute 07/18/14) Carpal tunnel syndrome (Acute) Chest pain (Acute 02/15/13) 2012 cardiac cath at [facility], no signif coronary artery disease Chronic renal failure syndrome (Acute 10/14/12) dialysis at [facility] NOT on [facility] transplant list due to pulm htn Depressive disorder (Acute) Dialysis patient (Acute 11/10/17) Dysfunction of eustachian tube (Acute 10/19/14) Essential hypertension (Acute 04/07/13) Fracture of right ankle (Acute 07/18/14) Gastroesophageal reflux disease (Acute 09/11/15) Gastroparesis (Acute 10/14/12) Hearing loss (Acute 08/22/14) transient at the end of dialysis History of open reduction and internal fixation (ORIF) procedure (Acute) Hyperlipidemia (Acute) Inguinal adenopathy (Acute 06/22/16) Mediastinal adenopathy (Acute 06/22/16) Memory impairment (Acute) TBI 1985 Obstructive sleep apnea syndrome (Acute 02/15/13) dx: 2013 at [facility], unable to tolerate CPAP 07/07, Dr Padgett for oral appliance (unable to kassidy) Plantar wart of left foot (Acute 12/14/14) Pneumonia (Acute 11/02/14) October [address] at [facility] Pneumonia (Acute 11/02/14) Pulmonary hypertension (Acute 03/02/15) 03/06 right heart cath [facility] (PA pressure 86/37) Retroperitoneal bleed (Acute 06/22/16) Status post cholecystectomy (Acute) Type I diabetes mellitus with end-stage renal disease (Acute 10/13/12) Dialysis at [facility] On insulin pump managed by [facility] Type I diabetes mellitus with proliferative retinopathy (Acute 06/05/11) 06/05/11 [facility]; Involutional PDR with out macular edema in both eyes. 04/05/13: [facility]: Stable retinopathy 04/03/16; [facility]; INVOLUTIONAL DIABETIC RETINOPATHY S/P EXTENSIVE PRP OU-stable findings Cough (Acute) Upper respiratory infection (Acute) Poorly controlled type 1 diabetes mellitus (Acute 11/02/14) (since age 6) [facility] [place], insulin pump Type 1 diabetes mellitus without complications (Chronic) Trimalleolar fracture of right ankle (Acute 07/18/14) Fall due to ice or snow (Acute 07/18/14) Chronic kidney disease requiring chronic dialysis (Chronic) Hyperkalemia (Chronic) Medical History Chronic renal failure syndrome Diabetes mellitus type 1 Essential hypertension Gastroparesis Hyperlipidemia Surgical History Cholecystectomy (~2000) Fracture, Open Treatment RIGHT ANKLE 07/18/14 Family History Mother No problems noted. Father No problems noted. Sister No problems noted. Grandfather No problems noted. Grandfather No problems noted. Grandmother No problems noted. Grandmother No problems noted. Social History Smoking/Tobacco Use Status: Never Second Hand Exposure: No Smoking risk assessment performed?: Yes Alcohol Intake: never Drug use: Never Substance use type: does not use Household members: family Do you need help understanding health information?: Rarely Pets and animals: No What is your relationship status?: Panel score (0-1 are the most socially isolated patients): 0 Do you feel safe at home: Yes Do you feel safe in your relationship?: Yes Exam Const General: cooperative, healthy appearing, comfortable and no acute distress Orientation: alert and awake HENCO Head: normal to inspection, normocephalic and atraumatic Eyes General: appearance normal, both eyes and all related structures Conjunctivae: conjunctivae normal Neck Neck: normal visual inspection, full ROM, trachea midline and supple Resp Effort & Inspection: normal respiratory effort and able to speak in complete sentences Auscultation: diminished lung sounds bilaterally in the lower lung wall Cardio Rate: regular rate Rhythm: regular rhythm GI Palpation: soft and nontender Back/Spine/Pelvis Back: no CVA tenderness and back tenderness (Diffuse thoracic) Skin General skin exam: no rashes or lesions noted Neuro General: patient alert, patient awake, moves all extremities and no focal motor deficits Cognition: normal cognition Speech: speech normal Gait: normal gait Motor: muscle tone normal throughout Sensory Exam: no sensory deficits noted Extrem General: normal to inspection, full ROM and capillary refill normal Psych Appearance: grossly normal Mental Status: mental status grossly normal Course Vital Signs Vital signs: Vital Signs Temperature 37.2 C 10/07/21 13:51 Pulse 82 10/07/21 13:51 Respiratory Rate 18 10/07/21 13:51 Blood Pressure 135/57 L 10/07/21 13:51 Pulse Oximetry 93 10/07/21 13:51 Temperature 36.9 C 10/07/21 15:57 Temperature Source Oral 10/07/21 15:57 Pulse 75 10/07/21 15:57 Respiratory Rate 17 10/07/21 15:57 Blood Pressure 119/61 10/07/21 15:57 Blood Pressure Position Sitting 10/07/21 13:51 Pulse Oximetry 90 L 10/07/21 15:57 Oxygen Delivery Method Room Air 10/07/21 15:57 Oxygen Flow Rate 0 10/07/21 15:57
--- NOTE | 2021-10-07 18:02 | NUR.NOTE ---
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 A referral was made previously, however the patient has not heard back from them yet.
== END 2021-10-07 16:47 | disposition home or self-care (01) ==
PROVIDERS: Emergency Provider Physician Assistant; PCP Family Medicine
DX: M54.89 Other dorsalgia (principal); C79.51 Secondary malignant neoplasm of bone
CPT/HCPCS: 99283

== ENCOUNTER 2021-10-13 20:54 | Emergency (ER) | payer MEDICARE, MEDICAID, SELFPAY ==
[2021-10-13] VITALS (22 sets, daily range): BP systolic 97–142; BP diastolic 44–70; PULSE 75–87; RESP 17–25; TEMP 36.4–36.5; O2SAT 85–98
--- NOTE | 2021-10-13 21:00 | RT.EKG_ITS ---
APPROVED REPORT Exam: Resting ECG Reason for Exam: short of breath Patient Location: E HR:76 bpm ECG Measurements Heart Rate 76 AXIS RI 201 P 24 QRSd 196 QRS 113 QT 467 T -29 QTc 526 Conclusion Sinus rhythm...normal P axis, V-rate 60- 99 RBBB and LPFB...QRSd >120mS, axis(90,210) ST depr, consider ischemia, anterolateral lds...ST <-0.10mV, I aVL V2-V6 RBBB and LPFB are new compared to previous. T wave inversion present previously but deeper now. Dep rression most concerning in v2 -v4
--- NOTE | 2021-10-13 21:15 | DI.CT_ITS ---
Exam(s) CT HEAD WO EXAM: CT HEAD WO CLINICAL HISTORY: ams. TECHNIQUE: Imaging Protocol: Axial computed tomography images with coronal and sagittal reformatted images were created and reviewed COMPARISON: No exams were available for comparison FINDINGS: Ventricles and Extra axial spaces: Normal in size and morphology for the patient's age. Hemorrhage: None. Cerebral parenchyma: No acute territorial infarct. There do appear to be subtle areas of decreased a ttenuation in the white matter most suggestive of small vessel ischemic disease. Midline shift: None. Brainstem/Cerebellum: Normal. Calvarium: No acute fracture. Visualized Paranasal sinuses/Mastoids: Clear. Soft Tissues: Unremarkable. IMPRESSION: No acute intracranial process. RADIATION DOSE DELIVERED: 870.26mGy.cm Total DLP DATA REPOSITORY: All CT scans at this facility are submitted to the National Radiology Data Registry (NRDR) Dose Index Registry (DIR) with the [employer] (A[employer]). RADIATION OPTIMIZATION: All CT scans at this facility use at least one of these dose optimization te chniques: automated exposure control; mA and/or kV adjustment per patient size (includes targeted exa ms where dose is matched to clinical indication); or iterative reconstruction.
--- NOTE | 2021-10-13 21:24 | DI.RAD_ITS ---
Exam(s) XR CHEST 1V IN DI DEPT EXAM: XR CHEST 1V IN DI DEPT CLINICAL HISTORY: weakness, ams TECHNIQUE: 2D digital imaging was performed of the chest. One image was obtained. An AP view was ob tained. COMPARISON: CR,XR XR CHEST 2V PA LATERAL from 06/22/2019 FINDINGS: MEDIASTINUM: Normal. HEART: The heart appears mildly enlarged, this may be due to AP technique. PULMONARY VASCULATURE: Normal. LUNGS: Clear. PLEURAL SPACE: No pleural effusion or pneumothorax. BONE:Within normal limits for the patient's age. OTHER FINDINGS:The double-lumen central venous catheter is in good position. IMPRESSION: No acute pulmonary findings. DATA REPOSITORY: RADIATION DOSE DELIVERED:
[2021-10-13 21:36] LABS: BE (Venous) -11 mmol/L (-2-3); HCO3 (Venous) 18 mmol/L (23-28); O2 Sat (Venous) 89 %; TCO2 (Venous) 18 mmol/L (24-29); pCO2 (Venous) 53 mmHg (41-51); pO2 (Venous) 73 mmHg
--- NOTE | 2021-10-13 21:38 | W.ED.GENAD ---
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 He has about 3 meals a day and 3 snacks a day PO once; albuterol sulfate [Ventolin HFA] 90 mcg/actuation HFA aerosol inhaler 2 puff inhalation Q6H PRN (Reason: shortness of breath or wheezing) Qty: 8.5 1RF carvedilol 25 MG tablet 25 mg PO TID Qty: 180 4RF Label Comments: 10/01/16 1 TID. si Rx Instructions: 1 TAB BID aspirin [Ecotrin Low Strength] 81 MG tablet,delayed release (DR/EC) 81 mg PO DAILY 0RF (DME) Insulin Pump [id number] 1 EACH misc 1 ea Miscellaneous DIRECTED 0RF Label Comments: insulin pump Rx Instructions: novolog via pump (managed by [facility] endocrine) minoxidil 10 MG tablet 10 mg PO BID 0RF latanoprost [Xalatan] 2.5 ML drops 1 drp OU HS 0RF Glucagon Emergency Kit (human) 1 MG kit 1 mg IM/SC HYPOGLYCEMIA PRN Qty: 2 3RF (DME) Blood Glucose Test 1 EACH strip 1 ea Miscellaneous QID Qty: 360 4RF Rx Instructions: Contour next test strip dx: 250.03 type I diabetes with poor control and complications alcohol swabs [Alcohol Pads] 1 EACH pads, medicated 1 ea Topical 6 x/day Qty: 250 5RF (DME) pen needle, diabetic 1 EACH needle 1 ea Miscellaneous 6 x /day Qty: 180 11RF insulin aspart U-100 [Novolog Flexpen U-100 Insulin] 100 UNIT/1 ML insulin pen 3 - 12 u SQ 5x/day Qty: 5 5RF Rx Instructions: If insulin pump fails boluses before eating PROVENTIL HFA 18 GM HFA.AER.AD 1 - 2 puff Inhalation Q4H PRN Qty: 1 5RF baclofen 10 mg tablet 10 mg PO BID PRN (Reason: back pain) Qty: 15 0RF cinacalcet [Sensipar] 30 MG tablet 30 mg PO HS 0RF albuterol sulfate 2.5 MG/3 ML solution for nebulization 2.5 mg Inhalation Q4H PRN (Reason: Shortness Of Breath) Qty: 10 0RF Label Comments: no longer has (DME) Aeroneb Go Nebulizer 1 EACH misc 1 ea Miscellaneous DIRECTED Qty: 1 0RF oxycodone-acetaminophen [Percocet] 5-325 mg tablet 1 tab PO TID PRNQty: 8 0RF oxycodone-acetaminophen [Percocet] 5-325 mg tablet 1 tab PO Q8H PRNQty: 8 0RF amlodipine 5 MG tablet 5 mg PO DAILY 0RF Label Comments: pt took this med in the ER on his own w/o MD's knowledge. 06/19/16 rl Lantus U-100 Insulin 100 unit/mL solution 20 unit Sub-Q DAILY PRN0RF Rx Instructions: USE IF INSULIN PUMP FAILS Veltassa 8.4 gram powder in packet 8.4 gm PO HS 0RF Rx Instructions: K binder diazepam [Valium] 5 mg tablet 5 mg PO TID PRN (Reason: muscle spasm) Qty: 10 0RF Discharge Data Discharge Date/Time-TO BE ENTERED AT DEPARTURE: 10/13/21 23:58 Medical Decision Making Patient appears ill, mildly hypoxic upon arrival, 89%, on 1 L, 94% Hemodynamically stable Alert and oriented x4 at time of my assessment able to follow-up commands although tired in appearance and slowed in speech CT head does not show evidence of acute intracranial pathology chest x-ray with cardiomegaly, BNP of 21,000, likely secondary to need for dialysis and volume overloaded status Hyperkalemia, 7.5, given 1 g of calcium gluconate IV, 10 units of IV insulin without dextrose given blood sugar of 8094 Given albuterol 2.5, will repeat EKG with new right bundle branch block in the presence of significant hyperkalemia, 1 ampoule of bicarb administered pH of 7.14 with glucose of 894, concern for diabetic ketoacidosis Remains on telemetry monitoring, 2 large-bore IVs in place Patient wishes for full CODE STATUS, this was confirmed with patient and family in room Made aware regarding severity of his condition Insulin pump discontinued and infusion at point 1 unit/kg/h initiated at 7 units/h Fingerstick blood glucose every hour performed, last reading remains high Discussed with Dr. Solares, tarp repairer on-call at [facility], they have accepted patient to the medical ICU for Dr. Huggins is the accepting provider, patient remains hemodynamically stable in the emergency department Medical Records Medical records reviewed: Yes I reviewed the patient's medical records. Lab Data Lab results reviewed: Yes I reviewed the patient's lab results. HPI General Date/Time Provider Initiated Documentation: 10/13/21 20:59. HPI Narrative: This complex 51-year-old gentleman who is dialysis dependent, diabetic, insulin-dependent, recent diagnosis of right lung mass with bony metastases and mediastinal adenopathy presents with report of confusion/alteration in mental status which was noted this morning with hallucinations. Acute change from baseline with weakness. Denies any alcohol consumption. Recently started on Neurontin for pain secondary to metastases and likely lung cancer. Last dialysis on Thursday. Blood sugar readings high Related Data Home Medications Medication Instructions Recorded Confirmed aspirin 81 mg tablet,delayed 81 mg PO DAILY tab-cap 10/12/12 10/13/21 release (Ecotrin Low Strength) carvedilol 25 mg tablet 25 mg PO TID #180 tab-cap 10/12/12 10/13/21 subcutaneous insulin pump (Insulin ea 02/15/13 08/14/21 Pump [id number]) cinacalcet 30 mg tablet (Sensipar) 30 mg PO HS 04/01/14 10/13/21 minoxidil 10 mg tablet 10 mg PO BID tab-cap 06/27/14 10/13/21 glucagon (human recombinant) 1 mg 1 mg IM/SC HYPOGLYCEMIA PRN #2 kit 09/11/15 10/07/21 injection kit (Glucagon Emergency Kit (human-recomb)) latanoprost 0.005 % eye drops 1 drp OU HS drp 09/11/15 10/13/21 (Xalatan) amlodipine 5 mg tablet 5 mg PO DAILY 06/16/16 10/13/21 blood sugar diagnostic (Blood #360 strip 03/10/17 08/14/21 Glucose Test) alcohol swabs (Alcohol Pads) 1 ea TOPICAL 6 x/day #250 pad 06/09/17 10/07/21 pen needle, diabetic 29 gauge x #180 ndl 06/09/17 08/14/21 1/2 insulin aspart U-100 100 unit/mL 3 - 12 u SQ 5x/day #5 pen 06/12/17 10/07/21 (3 mL) subcutaneous pen (Novolog Flexpen U-100 Insulin aspart) albuterol sulfate 2.5 mg (3 mL) INHALATION Q4H PRN 11/14/17 10/07/21 #10 vial nebulizers (Aerone[employer]ant[employer]pper Go Nebulizer) #1 ea 11/14/17 08/14/21 insulin aspart (niacinamide) 40 unit SC DAILY ml 08/03/18 10/07/21 (U-100) 100 unit/mL subcutaneous solution (Fiasp U-100 Insulin) diazepam 5 mg tablet 5 mg PO QHS PRN #7 tab 09/16/19 10/07/21 albuterol sulfate 90 mcg/actuation 2 puff INHALATION Q6H PRN #8.5 g 08/14/21 10/07/21 aerosol inhaler (Ventolin HFA) calcium acetate 667 mg tablet See Rx Instructions PO ONCE 08/14/21 10/13/21 baclofen 10 mg tablet 10 mg PO BID PRN #15 tab 08/20/21 10/07/21 diazepam 5 mg tablet (Valium) 5 mg PO TID PRN #10 tab 10/03/21 10/13/21 insulin glargine 100 unit/mL 20 unit SUB-Q DAILY PRN 10/03/21 10/07/21 subcutaneous solution (Lantus U-100 Insulin) patiromer calcium sorbitex 8.4 8.4 gm PO HS 10/03/21 10/07/21 gram oral powder packet (Veltassa) oxycodone-acetaminophen 5 mg-325 1 tab PO Q8H PRN #8 tab 10/07/21 10/13/21 mg tablet (Percocet) oxycodone-acetaminophen 5 mg-325 1 tab PO TID PRN #8 tab 04/18/22 mg tablet (Percocet) Previous Rx's Medication Instructions Recorded blood sugar diagnostic (Blood #360 strip 03/10/17 Glucose Test) alcohol swabs (Alcohol Pads) 1 ea TOPICAL 6 x/day #250 pad 06/09/17 pen needle, diabetic 29 gauge x #180 ndl 06/09/17 1/2 insulin aspart U-100 100 unit/mL 3 - 12 u SQ 5x/day #5 pen 06/12/17 (3 mL) subcutaneous pen (Novolog Flexpen U-100 Insulin aspart) albuterol sulfate 2.5 mg (3 mL) INHALATION Q4H PRN 11/14/17 #10 vial nebulizers (Aeroneb Go Nebulizer) #1 ea 11/14/17 diazepam 5 mg tablet 5 mg PO QHS PRN #7 tab 09/16/19 albuterol sulfate 90 mcg/actuation 2 puff INHALATION Q6H PRN #8.5 g 08/14/21 aerosol inhaler (Ventolin HFA) baclofen 10 mg tablet 10 mg PO BID PRN #15 tab 08/20/21 diazepam 5 mg tablet (Valium) 5 mg PO TID PRN #10 tab 10/03/21 oxycodone-acetaminophen 5 mg-325 1 tab PO Q8H PRN #8 tab 10/07/21 mg tablet (Percocet) oxycodone-acetaminophen 5 mg-325 1 tab PO TID PRN #8 tab 22 mg tablet (Percocet) Allergies Allergy/AdvReac Type Severity Reaction Status Date / Time mold Allergy Severe Closes off Verified 10/13/21 21:25 his throat Penicillins Allergy Severe HIVES Verified 10/13/21 21:25 vancomycin Allergy Unknown sweats, Verified 10/13/21 21:25 chills rash cigarette smoke Allergy Verified 10/13/21 21:25 simvastatin AdvReac Intermediate MYOPATHY Verified 10/13/21 21:25 hydromorphone [From Dilaudid] AdvReac Unknown Unverified 10/13/21 21:25 morphine AdvReac Nausea Verified 10/13/21 21:25 General Stated Complaint: AMS/LOC ARPITA: 2 Review of Systems All systems reviewed & are unremarkable except as noted in HPI and below PFSH All Active Problems (Updated 10/19/21 @ 15:56 by Sharla Toni, PA) Mass of right lung (Acute) Mediastinal adenopathy (Acute) Hilar adenopathy (Acute) Bone metastases (Acute) DKA (diabetic ketoacidosis) (Acute) Acute hyperkalemia (Acute) Acute metabolic encephalopathy (Acute) Upper back pain (Acute) PDR (proliferative diabetic retinopathy) (Acute ~01/31/21) 01/31/21 [facility] B/L Fatigue (Acute) Muscular deconditioning (Chronic) refer to PT Tick bite (Acute) with ongoing redness and arthralgias empiric Doxy x 7 days End-stage renal disease (Chronic) Continue dialysis Not transplant candidate due to PAH Diabetes mellitus (Chronic) Sugar is better. A1c via endo at [facility] Ankle fracture, right (Acute 07/18/14) Carpal tunnel syndrome (Acute) Chest pain (Acute 02/15/13) 2012 cardiac cath at [facility], no signif coronary artery disease Chronic renal failure syndrome (Acute 10/14/12) dialysis at [facility] NOT on [facility] transplant list due to pulm htn Depressive disorder (Acute) Dialysis patient (Acute 11/10/17) Dysfunction of eustachian tube (Acute 10/19/14) Essential hypertension (Acute 04/07/13) Fracture of right ankle (Acute 07/18/14) Gastroesophageal reflux disease (Acute 09/11/15) Gastroparesis (Acute 10/14/12) Hearing loss (Acute 08/22/14) transient at the end of dialysis History of open reduction and internal fixation (ORIF) procedure (Acute) Hyperlipidemia (Acute) Inguinal adenopathy (Acute 06/22/16) Mediastinal adenopathy (Acute 06/22/16) Memory impairment (Acute) TBI 1986 Obstructive sleep apnea syndrome (Acute 02/15/13) dx: 2013 at [facility], unable to tolerate CPAP 07/07, Dr Padgett for oral appliance (unable to kassidy) Plantar wart of left foot (Acute 12/14/14) Pneumonia (Acute 11/02/14) October [address] at [facility] Pneumonia (Acute 11/02/14) Pulmonary hypertension (Acute 03/02/15) 03/06 [facility] ([facility] pressure 86/37) Retroperitoneal bleed (Acute 06/22/16) Status post cholecystectomy (Acute) 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 04/05/13: [facility]: Stable retinopathy 04/03/16; [facility]; INVOLUTIONAL DIABETIC RETINOPATHY S/P EXTENSIVE PRP OU-stable findings Cough (Acute) Upper respiratory infection (Acute) Poorly controlled type 1 diabetes mellitus (Acute 11/02/14) (since age 6) [facility] endocrine, insulin pump Type 1 diabetes mellitus without complications (Chronic) Trimalleolar fracture of right ankle (Acute 07/18/14) Fall due to ice or snow (Acute 07/18/14) Chronic kidney disease requiring chronic dialysis (Chronic) Hyperkalemia (Chronic) Medical History (Updated 10/19/21 @ 15:56 by TREVOR Holly) Chronic renal failure syndrome Diabetes mellitus type 1 Essential hypertension Gastroparesis Hyperlipidemia Surgical History Cholecystectomy (~2000) Fracture, Open Treatment RIGHT ANKLE 07/18/14 Family History Mother No problems noted. Father No problems noted. Sister No problems noted. Grandfather No problems noted. Grandfather No problems noted. Grandmother No problems noted. Grandmother No problems noted. Social History Smoking/Tobacco Use Status: Never Second Hand Exposure: No Smoking risk assessment performed?: Yes Alcohol Intake: never Drug use: Never Substance use type: does not use Household members: family Do you need help understanding health information?: Rarely Pets and animals: No What is your relationship status?: Panel score (0-1 are the most socially isolated patients): 0 Do you feel safe at home: Yes Do you feel safe in your relationship?: Yes Exam Const General: cooperative and ill appearing Orientation: alert and oriented x3 HENMT Head: normal to inspection Mouth: oral mucosae normal Eyes Pupils: PERRL Resp Auscultation: clear to auscultation bilaterally Other: kussmal respirations Cardio Rate: regular rate Rhythm: regular rhythm GI Other: non-tender, mild distension Skin General skin exam: no rashes or lesions noted Neuro General: patient alert and patient oriented x3 Cranial Nerves: CN's II-XI intact bilaterally and gag reflex normal Speech: other (slowed speech) Sensory Exam: no sensory deficits noted Extrem Other: 1+ edema bilateral LE Course Vital Signs Vital signs: Vital Signs Temperature 36.4 C L 10/13/21 21:06 Pulse 77 10/13/21 21:06 Respiratory Rate 21 10/13/21 21:06 Blood Pressure 124/61 10/13/21 21:06 Pulse Oximetry 89 L 10/13/21 21:06 Temperature 36.4 C L 10/13/21 21:06 Temperature Source Temporal Artery Scan 10/13/21 21:06 Pulse 77 10/13/21 21:06 Respiratory Rate 20 10/13/21 21:18 Respiratory Effort 10/13/21 21:18 Respiratory Pattern Irregular 10/13/21 21:18 Blood Pressure 124/61 10/13/21 21:06 Blood Pressure Position Supine 10/13/21 21:06 Pulse Oximetry 89 L 10/13/21 21:06 Oxygen Delivery Method Room Air 10/13/21 21:06 Oxygen Flow Rate 0 10/13/21 21:06 Critical Care Time Critical Care Time Critical Care Time: Yes Total Critical Care Time: 60 Attestation: Telemetry monitoring, peripheral IV placement, diagnostic labs, diagnostic imaging, hyperkalemia management with IV insulin, IV bicarb, IV calcium, albuterol, diabetic ketoacidosis with a pH of 7.14 blood sugar of 894, creatinine of 9, consultation and transfer to [facility] for higher level of care, dialysis and ICU monitoring
[2021-10-13] MEDS: Normal Saline 500 ML IV (21:40)
[2021-10-13 21:41] LABS: Lactate 1.3 mmol/L (0.6-1.4); pH (Venous) 7.14 (7.31-7.41)
[2021-10-13 21:56] LABS: Magnesium 2.8 mg/dL (1.8-2.4)
[2021-10-13 21:57] LABS: Abs Immature Grans 0.04 10^3/uL (0.0-0.06); Absolute Basophil Count 0.09 10^3/uL (0.0-0.2); Absolute Eosinophil Count 0.35 10^3/uL (0.0-0.7); Absolute Monocyte Count 0.52 10^3/uL (0.1-0.8); Absolute Neutrophil Count 5.78 10^3/uL (1.2-6.7); Basophils % 1.2; Eosinophils % 4.7; HCT 35.9 % (40.0-50.0); HGB 10.5 g/dL (13.5-17.5); Immature Grans % 0.5; Lymphocytes % 9.4; MCH 31.3 pg (27.0-33.0); MCHC 29.2 % (32.0-36.0); MCV 106.8 fL (80-95); MPV 10.3 fL (8.0-11.0); Neutrophils % 77.2; Platelet Count 248 10^3/uL (130-400); RBC 3.36 10^6/uL (4.36-5.78); RDW 13.1 % (11.8-14.1); RDW-SD 52.1 fL; WBC 7.48 10^3/uL (4.4-10.8)
[2021-10-13 21:58] LABS: Ammonia 19 umol/L (11-32)
[2021-10-13 22:00] LABS: ALT 18 U/L (16-63); AST 17 U/L (15-37); Albumin 3.9 g/dL (3.4-5.0); Alkaline Phosphatase 121 U/L (46-116); Anion Gap 19.9 mmol/L (3-11); BUN 70 mg/dL (7-18); Bilirubin, Total 0.5 mg/dL (0.2-1.0); CO2 19.1 mmol/L (21.0-32.0); Calcium 9.2 mg/dL (8.5-10.1); Chloride 86 mmol/L (98-107); Estimated GFR 6.22 (mL/min/1.73m2); Sodium 125 mmol/L (136-145); Total Protein 8.5 g/dL (6.4-8.2); Troponin I < 50 ng/L (<or=60)
[2021-10-13 22:01] LABS: Source Nasal/Nares
[2021-10-13 22:03] LABS: Glucose 843 mg/dL (74-106); Potassium 7.5 mmol/L (3.5-5.1)
[2021-10-13 22:06] LABS: Lipase 57 U/L (73-393); NT-proBNP 21475 pg/mL (<300)
[2021-10-13 22:16] LABS: Diff Comment RBC Morph Reviewed; Macrocytosis 2+; Polychromasia Present
[2021-10-13] MEDS: INSULIN REGULAR IN 0.9 % NACL 100 UNIT/100 ML BAG 7.72 UNIT IV ×2 (22:16→22:18)
[2021-10-13] MEDS: Insulin REGULAR-Human 100 UNITS/ML UNIT 10 UNITS IV (22:18)
[2021-10-13] MEDS: Calcium Gluconate 4.65 MEQ/10 ML VIAL 4.65 MG IVP (22:33)
[2021-10-13] MEDS: Albuterol 2.5 MG/3 ML INH SOLN VIAL 15 MG UPD (22:37)
[2021-10-13] MEDS: Normal Saline 250 ML 500 ML IV (22:39)
[2021-10-13] MEDS: Sodium Bicarbonate 50 MEQ/50 ML SYR IVP (22:42)
[2021-10-13 22:48] LABS: COVID-19 PCR Negative (Negative)
--- NOTE | 2021-10-13 22:50 | NUR.NOTE ---
pt turned his insulin pump off when he got to rm two. it was determined that it had not been running for the last three hours Nursing Note:
--- NOTE | 2021-10-13 23:10 | DI.VRAD_ITS ---
PROCEDURE INFORMATION: Exam: CT Head Without Contrast Exam date and time: 10/13/2021 22:54 Age: 51 years old Clinical indication: Altered mental status/memory loss; Confusion or disorientation; Patient HX: AMS TECHNIQUE: Imaging protocol: Computed tomography of the head without contrast. Radiation optimization: All CT scans at this facility use at least one of these dose optimization techniques: automated exposure control; mA and/or kV adjustment per patient size (includes targeted exams where dose is matched to clinical indication); or iterative reconstruction. Other technique: STROKE PROTOCOL was implemented. COMPARISON: No relevant prior studies available. FINDINGS: Brain: Atrophy and chronic appearing white matter changes. No edema or hemorrhage. Cerebral ventricles: No ventriculomegaly. Paranasal sinuses: No acute sinusitis. Mastoid air cells: No mastoid effusion. Orbital cavities: Presumed postsurgical changes in the left lens. Bones/joints: Chronic appearing mild deformity of the left lamina papyracea. The calvarium is intact. Soft tissues: Mild edema in the subcutaneous fat of the scalp without a focal fluid collection. IMPRESSION: No acute intracranial findings. ASSESSMENT: ASPECTS (Nguyen Stroke Program Early CT Score) is 10. Dictated and Authenticated by: Rachel German MD. Ordering:DEDRA Magdaleno MD
--- NOTE | 2021-10-13 23:13 | DI.VRAD_ITS ---
PROCEDURE INFORMATION: Exam: XR Chest Exam date and time: 10/13/2021 23:03 Age: 51 years old Clinical indication: Other: Weakness, AMS; Patient HX: Weakness AMS TECHNIQUE: Imaging protocol: XR of the chest. Views: 1 view. COMPARISON: CT CHEST/ABD/PEL WO 10/03/2021 15:10 FINDINGS: Tubes, catheters and devices: Right chest wall dialysis catheter, satisfactory position. Lungs: No airspace consolidation. Pleural spaces: No pleural effusion. No pneumothorax. Heart/Mediastinum: Mild cardiomegaly with mild vascular congestion both likely accentuated by technique. Bones/joints: No acute fracture. IMPRESSION: Mild cardiomegaly with mild vascular congestion both likely accentuated by technique. Dictated and Authenticated by: Rachel German MD. Ordering:DEDRA Magdaleno MD
[2021-10-13] MEDS: Ondansetron 4 MG/2 ML VIAL (23:46)
== END 2021-10-13 23:58 | disposition short-term general hospital (02) ==
PROVIDERS: Emergency Provider Physician Assistant; PCP Family Medicine
DX: E10.10 Type 1 diabetes mellitus with ketoacidosis without coma (principal); E10.22 Type 1 diabetes mellitus with diabetic chronic kidney disease; I12.0 Hypertensive chronic kidney disease with stage 5 chronic kidney disease or end stage renal disease; N18.6 End stage renal disease; Z99.2 Dependence on renal dialysis; Z79.4 Long term (current) use of insulin; E87.5 Hyperkalemia; G93.41 Metabolic encephalopathy; R41.82 Altered mental status, unspecified; R06.02 Shortness of breath
CPT/HCPCS: 36415; 36416; 80053; 82805; 82962; 83690; 87635; 93005; 94640; 96361; 96365; 96366; 96375; 99291; 70450; 71045; 82140; 83605; 83735; 83880; 84484; 85025; 93010; J0610; J2405; J7613

== ENCOUNTER 2021-11-01 04:09 | Emergency (ER) | payer MEDICARE, MEDICAID, SELFPAY ==
[2021-11-01] VITALS (18 sets, daily range): BP systolic 124–157; BP diastolic 60–82; PULSE 74–78; RESP 16; TEMP 36.6; O2SAT 86–100
--- NOTE | 2021-11-01 04:10 | W.ED.GENAD ---
Discharge Plan Disposition Patient Disposition: [facility] Condition: Stable Discharge Details Clinical Impression: Bilateral sensory deficit present, Bilateral leg weakness Primary Care Provider: Jose Alfredo Galindo ED Provider: Marcio Cuevas Home Meds and New Rx's Prescriptions: No Action Fiasp U-100 Insulin 100 unit/mL solution 40 unit SC DAILY Rx Instructions: only when pump not running diazepam 5 mg tablet 5 mg PO QHS PRN (Reason: sleep) Qty: 7 0RF calcium acetate 667 mg tablet See Rx Instructions PO ONCE Rx Instructions: He takes 5 with each meal and 3 with snacks. He has about 3 meals a day and 3 snacks a day PO once; albuterol sulfate [Ventolin HFA] 90 mcg/actuation HFA aerosol inhaler 2 puff inhalation Q6H PRN (Reason: shortness of breath or wheezing) Qty: 8.5 1RF carvedilol 25 MG tablet 25 mg PO TID Qty: 180 Label Comments: 10/01/16 1 TID. si Rx Instructions: 1 TAB BID aspirin [Ecotrin Low Strength] 81 MG tablet,delayed release (DR/EC) 81 mg PO DAILY (DME) Insulin Pump [id number] 1 EACH misc 1 ea Miscellaneous DIRECTED Label Comments: insulin pump Rx Instructions: novolog via pump (managed by [facility] endocrine) minoxidil 10 MG tablet 10 mg PO BID latanoprost [Xalatan] 2.5 ML drops 1 drp OU HS Glucagon Emergency Kit (human) 1 MG kit 1 mg IM/SC HYPOGLYCEMIA PRN Qty: 2 (DME) Blood Glucose Test 1 EACH strip 1 ea Miscellaneous QID Qty: 360 4RF Rx Instructions: Contour next test strip dx: 250.03 type I diabetes with poor control and complications alcohol swabs [Alcohol Pads] 1 EACH pads, medicated 1 ea Topical 6 x/day Qty: 250 5RF (DME) pen needle, diabetic 1 EACH needle 1 ea Miscellaneous 6 x /day Qty: 180 11RF insulin aspart U-100 [Novolog Flexpen U-100 Insulin] 100 UNIT/1 ML insulin pen 3 - 12 u SQ 5x/day Qty: 5 5RF Rx Instructions: If insulin pump fails boluses before eating PROVENTIL HFA 18 GM HFA.AER.AD 1 - 2 puff Inhalation Q4H PRN Qty: 1 5RF baclofen 10 mg tablet 10 mg PO BID PRN (Reason: back pain) Qty: 15 0RF cinacalcet [Sensipar] 30 MG tablet 30 mg PO HS albuterol sulfate 2.5 MG/3 ML solution for nebulization 2.5 mg Inhalation Q4H PRN (Reason: Shortness Of Breath) Qty: 10 0RF Label Comments: no longer has (DME) Aeroneb Go Nebulizer 1 EACH misc 1 ea Miscellaneous DIRECTED Qty: 1 0RF amlodipine 5 MG tablet 5 mg PO DAILY Label Comments: pt took this med in the ER on his own w/o MD's knowledge. 06/19/16 rl Lantus U-100 Insulin 100 unit/mL solution 20 unit Sub-Q DAILY PRN Rx Instructions: USE IF INSULIN PUMP FAILS Veltassa 8.4 gram powder in packet 8.4 gm PO HS Rx Instructions: K binder diazepam [Valium] 5 mg tablet 5 mg PO TID PRN (Reason: muscle spasm) Qty: 10 0RF Medical Decision Making With known T3 lytic lesion and new neurologic deficits with sensory level very concerned for cord compression. IV established and basic labs obtained. I did review the report from imaging done here and at [facility]. Call placed to [facility] to arrange for ED to ED transfer for spine consult and MRI. Discussed with Dr. Noriega in ED who accepts patient for transfer to her ED for further evaluation and spine consult. Discussed with patient who agrees with transfer. Lab Data Lab results reviewed: Yes I reviewed the patient's lab results. HPI General Mode of arrival: EMS. Date/Time Provider Initiated Documentation: 11/01/21 04:10. Limitations to Documentation: no limitations. Information obtained by: patient, RN notes reviewed and old records reviewed. HPI Narrative: Patient presents to ED with leg weakness and numbness. Patient was getting up to get ready for dialysis. He had bilateral lower extremity numbness and weakness which was not present when he went to bed. He has upper back pain which has been present and worked up with possible T3 lytic lesion on CAT scan. He now has numbness from about the abdomen down with extreme weakness of both legs. His arm feels normal and work normally. He denies any chest pain. He does have abdominal bloating and constipation which has been present since starting narcotics for the back pain. He was supposed to contact the hospital today to arrange for MRI of the spine. He called EMS when he realized he was unable to walk. There is no new falls or injuries. Related Data Home Medications Medication Instructions Recorded Confirmed aspirin 81 mg tablet,delayed 81 mg PO DAILY 10/12/12 11/01/21 release (Ecotrin Low Strength) carvedilol 25 mg tablet 25 mg PO TID #180 tab-caps 10/12/12 11/01/21 subcutaneous insulin pump (Insulin 02/15/13 10/25/21 Pump [id number]) cinacalcet 30 mg tablet (Sensipar) 30 mg PO HS 04/01/14 11/01/21 minoxidil 10 mg tablet 10 mg PO BID 06/27/14 11/01/21 glucagon (human recombinant) 1 mg 1 mg IM/SC HYPOGLYCEMIA PRN ##2 09/11/15 11/01/21 injection kit (Glucagon Emergency Kit (human-recomb)) latanoprost 0.005 % eye drops 1 drp OU HS 09/11/15 11/01/21 (Xalatan) amlodipine 5 mg tablet 5 mg PO DAILY 06/16/16 11/01/21 blood sugar diagnostic (Blood #360 strips 03/10/17 10/25/21 Glucose Test strips) alcohol swabs (Alcohol Pads) 1 ea topical 6 x/day #250 pad 06/09/17 10/25/21 pen needle, diabetic 29 gauge x ##180 06/09/17 10/25/21 1/2 insulin aspart U-100 100 unit/mL 3 - 12 u SQ 5x/day #5 pens 06/12/17 11/01/21 (3 mL) subcutaneous pen (Novolog Flexpen U-100 Insulin aspart) albuterol sulfate 2.5 mg/3 mL 2.5 mg (3 mL) inhalation Q4H PRN 11/14/17 11/01/21 (0.083 %) solution for nebulization Shortness Of Breath #10 vials nebulizers (Aeroneb Go Nebulizer) #1 ea 11/14/17 10/25/21 insulin aspart (niacinamide) 40 unit subcut DAILY 08/03/18 11/01/21 (U-100) 100 unit/mL subcutaneous solution (Fiasp U-100 Insulin) diazepam 5 mg tablet 5 mg PO QHS PRN sleep #7 tabs 09/16/19 10/25/21 albuterol sulfate 90 mcg/actuation 2 puff inhalation Q6H PRN 08/14/21 11/01/21 aerosol inhaler (Ventolin HFA) shortness of breath or wheezing #8.5 grams calcium acetate 667 mg tablet See Rx Instructions PO ONCE 08/14/21 11/01/21 baclofen 10 mg tablet 10 mg PO BID PRN back pain #15 tabs 08/20/21 10/25/21 diazepam 5 mg tablet (Valium) 5 mg PO TID PRN muscle spasm #10 10/03/21 10/25/21 tabs insulin glargine 100 unit/mL 20 unit subcut DAILY PRN 10/03/21 11/01/21 subcutaneous solution (Lantus U-100 Insulin) patiromer calcium sorbitex 8.4 8.4 gm PO HS 10/03/21 11/01/21 gram oral powder packet (Veltassa) Previous Rx's Medication Instructions Recorded blood sugar diagnostic (Blood #360 strips 03/10/17 Glucose Test strips) alcohol swabs (Alcohol Pads) 1 ea topical 6 x/day #250 pad 06/09/17 pen needle, diabetic 29 gauge x ##180 06/09/17 1/2 insulin aspart U-100 100 unit/mL 3 - 12 u SQ 5x/day #5 pens 06/12/17 (3 mL) subcutaneous pen (Novolog Flexpen U-100 Insulin aspart) albuterol sulfate 2.5 mg/3 mL 2.5 mg (3 mL) inhalation Q4H PRN 11/14/17 (0.083 %) solution for nebulization Shortness Of Breath #10 vials nebulizers (Aeroneb Go Nebulizer) #1 ea 11/14/17 diazepam 5 mg tablet 5 mg PO QHS PRN sleep #7 tabs 09/16/19 albuterol sulfate 90 mcg/actuation 2 puff inhalation Q6H PRN 08/14/21 aerosol inhaler (Ventolin HFA) shortness of breath or wheezing #8.5 grams baclofen 10 mg tablet 10 mg PO BID PRN back pain #15 tabs 08/20/21 diazepam 5 mg tablet (Valium) 5 mg PO TID PRN muscle spasm #10 10/03/21 tabs Allergies Allergy/AdvReac Type Severity Reaction Status Date / Time mold Allergy Severe Closes off Verified 11/01/21 04:15 his throat Penicillins Allergy Severe HIVES Verified 11/01/21 04:15 vancomycin Allergy Unknown sweats, Verified 11/01/21 04:15 chills rash cigarette smoke Allergy Verified 11/01/21 04:15 simvastatin AdvReac Intermediate MYOPATHY Verified 11/01/21 04:15 hydromorphone [From Dilaudid] AdvReac Unknown Unverified 11/01/21 04:15 morphine AdvReac Nausea Verified 11/01/21 04:15 General ARPITA: 2 Review of Systems Narrative: 04/04 Review of Systems completed and is negative except as stated above in HPI (Systems reviewed: Const, Eyes, ENT, Resp, CV, GI, , MSK, Skin, Neuro) PFSH All Active Problems (Updated 11/01/21 @ 06:26 by Marcio Cuevas MD) Bilateral sensory deficit present (Acute) Bilateral leg weakness (Acute) Mass of right lung (Acute) Mediastinal adenopathy (Acute) Hilar adenopathy (Acute) Bone metastases (Acute) DKA (diabetic ketoacidosis) (Acute) Acute hyperkalemia (Acute) Acute metabolic encephalopathy (Acute) Upper back pain (Acute) PDR (proliferative diabetic retinopathy) (Acute ~01/31/21) 01/31/21 [facility] B/L Fatigue (Acute) Muscular deconditioning (Chronic) refer to PT Tick bite (Acute) with ongoing redness and arthralgias empiric Doxy x 7 days End-stage renal disease (Chronic) Continue dialysis Not transplant candidate due to PAH Diabetes mellitus (Chronic) Sugar is better. A1c via endo at [facility] Ankle fracture, right (Acute 07/18/14) Carpal tunnel syndrome (Acute) Chest pain (Acute 02/15/13) 2012 cardiac cath at [facility], no signif coronary artery disease Chronic renal failure syndrome (Acute 10/14/12) dialysis at [facility] NOT on [facility] transplant list due to pulm htn Depressive disorder (Acute) Dialysis patient (Acute 11/10/17) Dysfunction of eustachian tube (Acute 10/19/14) Essential hypertension (Acute 04/07/13) Fracture of right ankle (Acute 07/18/14) Gastroesophageal reflux disease (Acute 09/11/15) Gastroparesis (Acute 10/14/12) Hearing loss (Acute 08/22/14) transient at the end of dialysis History of open reduction and internal fixation (ORIF) procedure (Acute) Hyperlipidemia (Acute) Inguinal adenopathy (Acute 06/22/16) Mediastinal adenopathy (Acute 06/22/16) Memory impairment (Acute) TBI 1985 Obstructive sleep apnea syndrome (Acute 02/15/13) dx: 2013 at [facility], unable to tolerate CPAP 07/07, Dr Padgett for oral appliance (unable to kassidy) Plantar wart of left foot (Acute 12/14/14) Pneumonia (Acute 11/02/14) October [address] at [facility] Pneumonia (Acute 11/02/14) Pulmonary hypertension (Acute 03/02/15) 03/06 right heart cath [facility] (PA pressure 86/37) Retroperitoneal bleed (Acute 06/22/16) Status post cholecystectomy (Acute) Type I diabetes mellitus with end-stage renal disease (Acute 10/13/12) Dialysis at [facility] On insulin pump managed by [facility] Type I diabetes mellitus with proliferative retinopathy (Acute 06/05/11) 06/05/11 [facility]; Involutional PDR with out macular edema in both eyes. 04/05/13: [facility]: Stable retinopathy 04/03/16; [facility]; INVOLUTIONAL DIABETIC RETINOPATHY S/P EXTENSIVE PRP OU-stable findings Cough (Acute) Upper respiratory infection (Acute) Poorly controlled type 1 diabetes mellitus (Acute 11/02/14) (since age 6) [facility] endocrine, insulin pump Type 1 diabetes mellitus without complications (Chronic) Trimalleolar fracture of right ankle (Acute 07/18/14) Fall due to ice or snow (Acute 07/18/14) Chronic kidney disease requiring chronic dialysis (Chronic) Hyperkalemia (Chronic) Medical History (Updated 11/01/21 @ 06:26 by Marcio Cuevas MD) Chronic renal failure syndrome Diabetes mellitus type 1 Essential hypertension Gastroparesis Hyperlipidemia Surgical History Cholecystectomy (~2000) Fracture, Open Treatment RIGHT ANKLE 07/18/14 Family History Mother No problems noted. Father No problems noted. Sister No problems noted. Grandfather No problems noted. Grandfather No problems noted. Grandmother No problems noted. Grandmother No problems noted. Social History Smoking/Tobacco Use Status: Never Second Hand Exposure: No Smoking risk assessment performed?: Yes Alcohol Intake: never Drug use: Never Substance use type: does not use Household members: family Do you need help understanding health information?: Rarely Pets and animals: No What is your relationship status?: Panel score (0-1 are the most socially isolated patients): 0 Do you feel safe at home: Yes Do you feel safe in your relationship?: Yes Exam Narrative Exam Narrative: Const: WDWN male in NAD. HEENT: NC/AT. Normal facial exam. Eyes: Normal conjunctiva and sclera. Neck: Supple. Trachea midline. Lungs: Normal respiratory effort. Lungs are clear. Cor: RRR without murmur/gallop. Good radial pulses. GI: Soft. NT/ND. Back: Mild t-spine tenderness. Neuro: A+O x 3. Normal speech, mentation. Cranial nerves II - XII grossly intact. Sensory level with numbness and decreased sensation from about the xyphoid down. Symmetric bilateral LE weakness present but not complete paralysis. Ext: No C/C/E. Skin: Warm and dry without rash.
[2021-11-01 04:42] LABS: Abs Immature Grans 0.08 10^3/uL (0.0-0.06); Absolute Basophil Count 0.09 10^3/uL (0.0-0.2); Absolute Lymphocyte Count 1.07 10^3/uL (1.2-3.4); Absolute Monocyte Count 0.68 10^3/uL (0.1-0.8); Absolute Neutrophil Count 6.99 10^3/uL (1.2-6.7); Basophils % 0.9; Eosinophils % 8.2; HCT 36.6 % (40.0-50.0); HGB 11.2 g/dL (13.5-17.5); Immature Grans % 0.8; MCH 30.2 pg (27.0-33.0); MCHC 30.6 % (32.0-36.0); MCV 99 fL (80-95); MPV 9.1 fL (8.0-11.0); Neutrophils % 72.1; Platelet Count 381 10^3/uL (130-400); RBC 3.71 10^6/uL (4.36-5.78); RDW 13.3 % (11.8-14.1); RDW-SD 46.6 fL; WBC 9.71 10^3/uL (4.4-10.8)
[2021-11-01 04:52] LABS: Anion Gap 9.9 mmol/L (3-11); BUN 30 mg/dL (7-18); CO2 31.1 mmol/L (21.0-32.0); Calcium 10.3 mg/dL (8.5-10.1); Chloride 100 mmol/L (98-107); Estimated GFR 8.74 (mL/min/1.73m2); Glucose 123 mg/dL (74-106); Potassium 4.4 mmol/L (3.5-5.1); Sodium 141 mmol/L (136-145)
[2021-11-01 05:08] LABS: CREATININE 6.7 mg/dL (0.70-1.30)
[2021-11-01] MEDS: Acetaminophen 500 MG TAB 1000 MG PO (07:34)
== END 2021-11-01 07:32 | disposition short-term general hospital (02) ==
PROVIDERS: Emergency Provider Emergency Medicine; PCP Family Medicine
DX: R53.1 Weakness (principal); R29.818 Other symptoms and signs involving the nervous system
CPT/HCPCS: 80048; 99285; 85025